=== PATIENT | female | born 1940 | race Caucasian/White ===

== ENCOUNTER → 2016-04-01 | Outpatient (REF) | payer MEDICARE, MEDICAID ==
[~2016-04-01] MED LIST: ASPI1TAB PO; BIOT10005 PO; BUSP5TAB45 PO; HYDR-3363 PO; LITH300C PO; MECL25CH PO; MULTCAP PO; OPTI0.5D5 OU; SLOWTAB2 PO; SYNT100T PO; SYNT88TA2 PO; TYLE325T5 PO; VITA100037 PO; VITATAB11 PO; ZOCO20TA PO; [UNRECOGNIZED DRUG - CODE] PO
[2016-04-01 18:02] LABS: TOTAL PROTEIN 7.1 GM/DL (6.4-8.2)
[2016-04-02 10:39] LABS: ALBUMIN % 60.3 % (55.8-66.1)
[2016-04-02 10:40] LABS: ALBUMIN 4.28 GM/DL (3.29-5.55); GAMMA GLOBULIN % 16.1 % (11.1-18.8)
[2016-04-04 00:08] LABS: FREE KAPPA LIGHT CHAINS SERUM 160.64 mg/L (3.30-19.40); FREE LAMBDA LIGHT CHAINS SERUM 34.76 mg/L (5.71-26.30); KAPPA/LAMBDA RATIO SERUM 4.62 (0.26-1.65)
== END ==
LOC: M LAB REF 16:09
PROVIDERS: ATTEND Internal Medicine Medical Oncology
DX: D89.2 Hypergammaglobulinemia, unspecified (principal)

== ENCOUNTER → 2016-04-08 | Outpatient (CLI) | payer MEDICARE, MEDICAID | LOC: M HL 13:36 | PROVIDERS: ATTEND Nurse Practitioner Adult Health | DX: R63.5 Abnormal weight gain (principal) ==

== ENCOUNTER → 2016-05-20 | Outpatient (CLI) | payer MEDICARE, MEDICAID ==
--- NOTE | 2016-05-20 17:11 | ECGEPIP ---
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
== END ==
LOC: M EKG 14:34
PROVIDERS: ATTEND Nurse Practitioner Psychiatric/Mental Health
DX: I45.81 Long QT syndrome (principal)

== ENCOUNTER → 2016-06-10 | Outpatient (REF) | payer MEDICARE, MEDICAID ==
[2016-06-10 20:07] LABS: IMMUNOGLOBULIN A 39.8 MG/DL (70-400); IMMUNOGLOBULIN G 577 MG/DL (681-1648); IMMUNOGLOBULIN M 921 MG/DL (40-230); TOTAL PROTEIN 6.8 GM/DL (6.4-8.2)
[2016-06-12 10:15] LABS: FREE KAPPA LIGHT CHAINS SERUM 158.02 mg/L (3.30-19.40); FREE LAMBDA LIGHT CHAINS SERUM 19.29 mg/L (5.71-26.30); KAPPA/LAMBDA RATIO SERUM 8.19 (0.26-1.65)
[2016-06-13 10:01] LABS: ALBUMIN 4.07 GM/DL (3.29-5.55); ALBUMIN % 59.8 % (55.8-66.1); GAMMA GLOBULIN % 16.2 % (11.1-18.8)
== END ==
LOC: M LAB REF 17:06
PROVIDERS: ATTEND Internal Medicine Medical Oncology
DX: C85.90 Non-Hodgkin lymphoma, unspecified, unspecified site (principal)

== ENCOUNTER → 2016-07-04 | Outpatient (CLI) | payer MEDICARE, MEDICAID ==
--- NOTE | 2016-07-04 15:11 | REP ---
WHOLE BODY BONE SCAN: HISTORY: Bone pain, monoclonal gammopathy. TECHNIQUE: 20.1 mCi technetium 99m MDP is injected and standard whole body bone scan imaging is acquired. SCINTIGRAPHIC FINDINGS: There is a normal distribution of skeletal tracer with uptake in bilateral kidneys as well as in the urinary bladder. No focus of increased or decreased uptake is seen to suggest skeletal metastatic disease. There is an arthritic pattern in the midfoot joints of the right foot. There is arthritic uptake in each knee and in both shoulders. Mild degenerative uptake is seen at L4-5 in the lumbar spine. IMPRESSION: Arthritic uptake pattern as above most prominently affecting the right midfoot. No evidence to suggest skeletal metastatic disease. Signed by Florencio Ruiz MD 07/04/2016 04:47 P
== END ==
LOC: M RAD 10:12
PROVIDERS: ATTEND Internal Medicine Medical Oncology
DX: D47.2 Monoclonal gammopathy (principal)
CPT/HCPCS: 78306; A9503

== ENCOUNTER → 2016-08-19 | Outpatient (REF) | payer MEDICARE, MEDICAID ==
[2016-08-19 18:12] LABS: IMMUNOGLOBULIN A 40.7 MG/DL (70-400); IMMUNOGLOBULIN G 564 MG/DL (681-1648); IMMUNOGLOBULIN M 1060 MG/DL (40-230)
[2016-08-20 13:42] LABS: ALBUMIN 4.16 GM/DL (3.29-5.55); ALBUMIN % 59.4 % (55.8-66.1); GAMMA GLOBULIN % 16.4 % (11.1-18.8)
[2016-08-22 00:07] LABS: FREE KAPPA LIGHT CHAINS SERUM 164.7 mg/L (3.3-19.4); FREE LAMBDA LIGHT CHAINS SERUM 22.2 mg/L (5.7-26.3); KAPPA/LAMBDA RATIO SERUM 7.42 (0.26-1.65)
== END ==
LOC: M LAB REF 17:07
PROVIDERS: ATTEND Internal Medicine Medical Oncology
DX: Z00.00 Encounter for general adult medical examination without abnormal findings (principal)

== ENCOUNTER → 2016-11-04 | Outpatient (REF) | payer MEDICARE, MEDICAID ==
[2016-11-04 14:10] LABS: FREE T4 1.21 NG/DL (0.76-1.46)
== END ==
LOC: M SMT 13:11
PROVIDERS: ATTEND Internal Medicine Nephrology
DX: E03.9 Hypothyroidism, unspecified (principal)

== ENCOUNTER → 2016-12-19 | Outpatient (REF) | payer MEDICARE, MEDICAID ==
[2016-12-19 20:31] LABS: IMMUNOGLOBULIN G 620 MG/DL (681-1648); IMMUNOGLOBULIN M 1100 MG/DL (40-230); TOTAL PROTEIN 7.4 GM/DL (6.4-8.2)
[2016-12-22 00:06] LABS: FREE KAPPA LIGHT CHAINS SERUM 145.6 mg/L (3.3-19.4); FREE LAMBDA LIGHT CHAINS SERUM 23.1 mg/L (5.7-26.3); KAPPA/LAMBDA RATIO SERUM 6.3 (0.26-1.65)
[2016-12-23 10:49] LABS: ALBUMIN 4.36 GM/DL (3.29-5.55); ALBUMIN % 58.9 % (55.8-66.1); GAMMA GLOBULIN % 16.7 % (11.1-18.8)
== END ==
LOC: M LAB REF 18:01
PROVIDERS: ATTEND Internal Medicine Medical Oncology
DX: D47.2 Monoclonal gammopathy (principal)

== ENCOUNTER → 2017-02-14 | Outpatient (CLI) | payer MEDICARE, MEDICAID ==
--- NOTE | 2017-02-14 16:18 | REPMRS ---
Patient History The patient states she had a clinical breast exam in Patient is postmenopausal. No known family history of cancer. Benign excisional biopsy of the right breast, 1983. Benign excisional biopsy of the left breast, 1982. Took estrogen for 1 month. Digital Woman Screen Mammo: February 14, 2017 - Exam #: [id number] Bilateral CC and MLO view(s) were taken. Technologist: Patricia Allan, Technologist Prior study comparison: January 03, 2016, digital woman screen mammo performed at [facility] [employer] [facility]. December 15, 2014, digital woman screen mammo performed at [facility] [employer] [facility]. December 14, 2013, digital woman screen mammo performed at [facility] [employer] [facility]. FINDINGS: There are scattered fibroglandular densities. There has been no change in the appearance of the mammogram from the prior studies. There is a mild amount of scattered fibroglandular density which is fairly symmetric. There is no interval development of dominant mass, architectural distortion, or clustered microcalcification suggestive of malignancy. ASSESSMENT: BI-RADS/ACR category 1 mammogram. Negative. Recommendation Routine screening mammogram in 1 year (for women over age 40). This mammogram was interpreted with the aid of an FDA-approved computer-aided dectection system. Electronically Signed By: Rivas Ruiz MD 02/14/17 [id number]
== END ==
LOC: M WHC 13:57
PROVIDERS: ATTEND Nurse Practitioner Women's Health
DX: Z01.419 Encounter for gynecological examination (general) (routine) without abnormal findings (principal); Z12.31 Encounter for screening mammogram for malignant neoplasm of breast; Z78.0 Asymptomatic menopausal state; Z92.89 Personal history of other medical treatment
CPT/HCPCS: G0101; G0202

== ENCOUNTER → 2017-02-19 | Outpatient (CLI) | payer MEDICARE, MEDICAID ==
--- NOTE | 2017-02-19 15:42 | REP ---
LEFT ANKLE, FOUR VIEWS: HISTORY: Pain. There is no acute fracture or dislocation. The joint space is normal in appearance. An osteophyte is present on the inferior calcaneus __. Soft tissue swelling is present. IMPRESSION: There is no acute fracture or dislocation. Signed by Raymond Fong MD 02/19/2017 03:45 P
--- NOTE | 2017-02-19 16:13 | REP ---
LEFT FOOT, FOUR VIEWS: HISTORY: Pain. There is no acute fracture or dislocation. There is narrowing of the first metatarsophalangeal joint space with associated osteophyte formation. An osteophyte is present on the inferior calcaneus. IMPRESSION: Degenerative change as described above. Signed by Raymond Fong MD 02/19/2017 04:18 P
== END ==
LOC: M RAD 13:37
PROVIDERS: ATTEND Nurse Practitioner Adult Health
DX: M25.572 Pain in left ankle and joints of left foot (principal); M79.672 Pain in left foot

== ENCOUNTER → 2017-03-24 | Outpatient (CLI) | payer MEDICARE, MEDICAID ==
[2017-03-24 11:29] LABS: BASO % 0.5 % (0.0-1.0); HEMATOCRIT 41.7 % (36.0-47.0); HEMOGLOBIN 13.6 g/dl (12.0-16.0); IMMATURE GRANULOCYTE % 0.4 % (0-0); LYMPH # 2.1 10^3/uL (1.5-4.5); LYMPH % 27.5 % (24.0-44.0); MEAN CORPUSCULAR HEMOGLOBIN 29.8 pg (27.0-33.0); MEAN CORPUSCULAR HGB CONC 32.6 g/dl (32.0-36.5); MEAN CORPUSCULAR VOLUME 91.4 fl (80.0-96.0); MONO # 0.6 10^3/uL (0.0-0.8); MONO % 7.3 % (0.0-5.0); NEUTROPHILS # 4.8 10^3/uL (1.8-7.7); NEUTROPHILS % 64.3 % (36.0-66.0); PLATELET COUNT, AUTOMATED 286 10^3/uL (150-450); RED BLOOD COUNT 4.56 10^6/uL (4.00-5.40); WHITE BLOOD COUNT 7.5 10^3/uL (4.0-10.0)
[2017-03-24 11:52] LABS: ESTIMATED AVERAGE GLUCOSE 163 MG/DL (60-110); HEMOGLOBIN A1c 7.3 %
[2017-03-24 12:05] LABS: TOTAL 25(OH) VITAMIN D 12.1 NG/ML (30.0-100.0)
[2017-03-24 12:34] LABS: ALBUMIN 4.1 GM/DL (3.2-5.2); ALBUMIN/GLOBULIN RATIO 1.32 (1.00-1.93); ALKALINE PHOSPHATASE 50 U/L (45-117); ALT/SGPT 38 U/L (12-78); ANION GAP 7 MEQ/L (8-16); AST/SGOT 12 U/L (7-37); BILIRUBIN,TOTAL 0.3 MG/DL (0.2-1.0); BLOOD UREA NITROGEN 28 MG/DL (7-18); CALCIUM LEVEL 10.3 MG/DL (8.8-10.2); CARBON DIOXIDE LEVEL 26 MEQ/L (21-32); CHLORIDE LEVEL 108 MEQ/L (98-107); CHOLESTEROL LEVEL 182 MG/DL (<200); CHOLESTEROL RISK RATIO 2.983 (<5); CREATININE FOR GFR 1.15 MG/DL (0.55-1.02); FREE T4 1.13 NG/DL (0.76-1.46); GLUCOSE, FASTING 191 MG/DL (83-110); HDL CHOLESTEROL 61 MG/DL (>40); NON-HDL-C 121 MG/DL; POTASSIUM SERUM 4.3 MEQ/L (3.5-5.1); SODIUM LEVEL 141 MEQ/L (136-145); TOTAL PROTEIN 7.2 GM/DL (6.4-8.2); TRIGLYCERIDES LEVEL 160 MG/DL (<150)
== END ==
LOC: M LAB 10:37
DX: R73.9 Hyperglycemia, unspecified (principal); E83.52 Hypercalcemia; Z79.899 Other long term (current) drug therapy; E55.9 Vitamin D deficiency, unspecified; E53.9 Vitamin B deficiency, unspecified; E83.42 Hypomagnesemia; E03.9 Hypothyroidism, unspecified
CPT/HCPCS: 84443

== ENCOUNTER → 2017-06-17 | Outpatient (REF) | payer MEDICARE, MEDICAID | LOC: M LAB REF 13:22 | DX: D47.2 Monoclonal gammopathy (principal); C85.10 Unspecified B-cell lymphoma, unspecified site | CPT/HCPCS: 88300 ==

== ENCOUNTER → 2017-07-02 | Outpatient (CLI) | payer MEDICARE, MEDICAID ==
[2017-07-02 11:31] LABS: BASO % 0.4 % (0.0-1.0); HEMATOCRIT 40.4 % (36.0-47.0); HEMOGLOBIN 13.4 g/dl (12.0-15.5); IMMATURE GRANULOCYTE % 0.5 % (0-3.0); LYMPH # 2.4 10^3/uL (1.5-4.5); LYMPH % 31.6 % (24.0-44.0); MEAN CORPUSCULAR HEMOGLOBIN 29.8 pg (27.0-33.0); MEAN CORPUSCULAR HGB CONC 33.2 g/dl (32.0-36.5); MEAN CORPUSCULAR VOLUME 89.8 fl (80.0-96.0); MONO # 0.6 10^3/uL (0.0-0.8); MONO % 7.9 % (0.0-5.0); NEUTROPHILS # 4.5 10^3/uL (1.8-7.7); NEUTROPHILS % 59.6 % (36.0-66.0); PLATELET COUNT, AUTOMATED 277 10^3/uL (150-450); RED CELL DISTRIBUTION WIDTH 13.3 % (11.5-14.5); WHITE BLOOD COUNT 7.5 10^3/uL (4.0-10.0)
[2017-07-02 12:01] LABS: ALBUMIN 3.9 GM/DL (3.2-5.2); ALBUMIN/GLOBULIN RATIO 1.08 (1.00-1.93); ALKALINE PHOSPHATASE 59 U/L (45-117); ALT/SGPT 44 U/L (12-78); ANION GAP 3 MEQ/L (8-16); AST/SGOT 20 U/L (7-37); BILIRUBIN,TOTAL 0.3 MG/DL (0.2-1.0); BLOOD UREA NITROGEN 23 MG/DL (7-18); CALCIUM LEVEL 10.5 MG/DL (8.8-10.2); CARBON DIOXIDE LEVEL 27 MEQ/L (21-32); CHLORIDE LEVEL 109 MEQ/L (98-107); CHOLESTEROL LEVEL 170 MG/DL (<200); CHOLESTEROL RISK RATIO 2.741 (<5); CREATININE FOR GFR 1.04 MG/DL (0.55-1.30); GLOMERULAR FILTRATION RATE 54.8 (>39); GLUCOSE, FASTING 176 MG/DL (70-100); HDL CHOLESTEROL 62 MG/DL (>40); LDL CHOLESTEROL 78.8 MG/DL (<100); MAGNESIUM LEVEL 2.3 MG/DL (1.8-2.4); NON-HDL-C 108 MG/DL; POTASSIUM SERUM 4.4 MEQ/L (3.5-5.1); SODIUM LEVEL 139 MEQ/L (136-145); TOTAL PROTEIN 7.5 GM/DL (6.4-8.2); TRIGLYCERIDES LEVEL 146 MG/DL (<150)
[2017-07-02 15:14] LABS: ESTIMATED AVERAGE GLUCOSE 177 MG/DL (60-110); HEMOGLOBIN A1c 7.8 %
[2017-07-04 09:01] LABS: VITAMIN B12 LEVEL 659 PG/ML
[2017-07-04 09:02] LABS: FOLATE > 24.0 NG/ML
[2017-07-04 10:04] LABS: TOTAL 25(OH) VITAMIN D 12.8 NG/ML (30.0-100.0)
== END ==
LOC: M LAB 10:58
DX: Z51.81 Encounter for therapeutic drug level monitoring (principal); Z79.899 Other long term (current) drug therapy; E03.9 Hypothyroidism, unspecified; E78.00 Pure hypercholesterolemia, unspecified; F31.9 Bipolar disorder, unspecified; E53.9 Vitamin B deficiency, unspecified
CPT/HCPCS: 82746

== ENCOUNTER → 2017-10-02 | Outpatient (REF) | payer MEDICARE, MEDICAID ==
[2017-10-02 18:28] LABS: IMMUNOGLOBULIN G 553 MG/DL (681-1648); IMMUNOGLOBULIN M 1120 MG/DL (40-230); TOTAL PROTEIN 7.2 GM/DL (6.4-8.2)
[2017-10-05 00:06] LABS: FREE KAPPA LIGHT CHAINS SERUM 133.6 mg/L (3.3-19.4); FREE LAMBDA LIGHT CHAINS SERUM 22.4 mg/L (5.7-26.3); KAPPA/LAMBDA RATIO SERUM 5.96 (0.26-1.65)
[2017-10-07 11:57] LABS: ALBUMIN 4.29 GM/DL (3.29-5.55); ALBUMIN % 59.6 % (55.8-66.1); ALPHA-1-GLOBULIN % 4.5 % (2.9-4.9); ALPHA-1-GLOBULINS 0.32 GM/DL (0.17-0.41); ALPHA-2-GLOBULINS 0.67 GM/DL (0.42-0.99); ALPHA-2-GLOBULINS % 9.3 % (7.1-11.8); BETA-1-GLOBULINS 0.47 GM/DL (0.28-0.60); BETA-1-GLOBULINS % 6.5 % (4.7-7.2); BETA-2-GLOBULINS 0.32 GM/DL (0.19-0.55); BETA-2-GLOBULINS % 4.5 % (3.2-6.5); GAMMA GLOBULIN % 15.6 % (11.1-18.8); GAMMA GLOBULINS 1.12 GM/DL (0.65-1.58)
== END ==
LOC: M LAB REF 17:24
DX: D72.820 Lymphocytosis (symptomatic) (principal); D47.2 Monoclonal gammopathy
CPT/HCPCS: 84165

== ENCOUNTER 2017-12-03 13:04 | Emergency (ER) | payer MEDICARE, MEDICAID ==
[2017-12-03 14:04] LABS: BASO % 0.6 % (0.0-1.0); HEMATOCRIT 36.4 % (36.0-47.0); HEMOGLOBIN 12.4 g/dl (12.0-15.5); IMMATURE GRANULOCYTE % 0.3 % (0-3.0); LYMPH # 1.5 10^3/uL (1.5-4.5); LYMPH % 20.9 % (24.0-44.0); MEAN CORPUSCULAR HEMOGLOBIN 30.4 pg (27.0-33.0); MEAN CORPUSCULAR HGB CONC 34.1 g/dl (32.0-36.5); MEAN CORPUSCULAR VOLUME 89.2 fl (80.0-96.0); MONO # 0.7 10^3/uL (0.0-0.8); MONO % 9.2 % (0.0-5.0); PLATELET COUNT, AUTOMATED 253 10^3/uL (150-450); RED BLOOD COUNT 4.08 10^6/uL (4.00-5.40); RED CELL DISTRIBUTION WIDTH 13.1 % (11.5-14.5); WHITE BLOOD COUNT 7.3 10^3/uL (4.0-10.0)
[2017-12-03 14:15] LABS: PROTHROMBIN TIME 12.2 SECONDS (12.1-14.4)
[2017-12-03 14:55] LABS: ALBUMIN 3.6 GM/DL (3.2-5.2); ALBUMIN/GLOBULIN RATIO 1.06 (1.00-1.93); ALKALINE PHOSPHATASE 61 U/L (45-117); ALT/SGPT 47 U/L (12-78); ANION GAP 7 MEQ/L (8-16); AST/SGOT 18 U/L (7-37); BILIRUBIN,DIRECT < 0.1 MG/DL (0.0-0.2); BILIRUBIN,TOTAL 0.3 MG/DL (0.2-1.0); BLOOD UREA NITROGEN 23 MG/DL (7-18); CALCIUM LEVEL 10.2 MG/DL (8.8-10.2); CARBON DIOXIDE LEVEL 25 MEQ/L (21-32); CHLORIDE LEVEL 107 MEQ/L (98-107); CPK CREATINE PHOSPHOKINASE 106 U/L (26-192); CREATININE FOR GFR 1.07 MG/DL (0.55-1.30); GLOMERULAR FILTRATION RATE 53.1 (>39); GLUCOSE, FASTING 309 MG/DL (70-100); LITHIUM LEVEL 0.66 MEQ/L (0.60-1.20); MB/CK RELATIVE INDEX 4.25 (< OR =4); POTASSIUM SERUM 4.1 MEQ/L (3.5-5.1); SODIUM LEVEL 139 MEQ/L (136-145); TROPONIN I < 0.02 NG/ML (< 0.10)
[2017-12-03] MEDS: FUROSEMIDE 40 MG/4 ML VIAL (J1940) IV (15:13)
== END 2017-12-03 19:18 | disposition left against medical advice (07) ==
LOC: M ED 13:04
DX: E11.9 Type 2 diabetes mellitus without complications (principal); R60.9 Edema, unspecified; I12.9 Hypertensive chronic kidney disease with stage 1 through stage 4 chronic kidney disease, or unspecified chronic kidney disease; N18.9 Chronic kidney disease, unspecified; E07.9 Disorder of thyroid, unspecified; Z88.8 Allergy status to other drugs, medicaments and biological substances; Z88.1 Allergy status to other antibiotic agents; Z91.013 Allergy to seafood; Z88.0 Allergy status to penicillin; Z88.2 Allergy status to sulfonamides; Z79.82 Long term (current) use of aspirin; Z79.899 Other long term (current) drug therapy; Z79.890 Hormone replacement therapy
CPT/HCPCS: J1940

== ENCOUNTER 2017-12-08 06:32 | Inpatient (IN) | payer MEDICARE, MEDICAID ==
[2017-12-08] MEDS: LEVOTHYROXINE 88MCG TABLET (0.088 MG) PO (06:00)
[2017-12-08 08:29] LABS: BASO % 0.2 % (0.0-1.0); EOS % 0.1 % (0.0-3.0); HEMATOCRIT 38.8 % (36.0-47.0); HEMOGLOBIN 12.9 g/dl (12.0-15.5); IMMATURE GRANULOCYTE % 0.8 % (0-3.0); LYMPH # 1.8 10^3/uL (1.5-4.5); LYMPH % 20.9 % (24.0-44.0); MEAN CORPUSCULAR HEMOGLOBIN 29.9 pg (27.0-33.0); MEAN CORPUSCULAR HGB CONC 33.2 g/dl (32.0-36.5); MONO # 0.7 10^3/uL (0.0-0.8); MONO % 8.3 % (0.0-5.0); NEUTROPHILS # 6.1 10^3/uL (1.8-7.7); NEUTROPHILS % 69.7 % (36.0-66.0); PLATELET COUNT, AUTOMATED 105 10^3/uL (150-450); RED BLOOD COUNT 4.31 10^6/uL (4.00-5.40); RED CELL DISTRIBUTION WIDTH 12.9 % (11.5-14.5); WHITE BLOOD COUNT 8.8 10^3/uL (4.0-10.0)
[2017-12-08 08:38] LABS: INR 0.92; PROTHROMBIN TIME 12.4 SECONDS (12.1-14.4)
[2017-12-08 08:39] LABS: PARTIAL THROMBOPLASTIN TIME 20.1 SECONDS (25.4-37.6)
[2017-12-08 08:51] LABS: LACTIC ACID SEPSIS PROTOCOL 1.3 MMOL/L (0.4-2.0)
[2017-12-08 08:54] LABS: POS COUNT POS FLAG
[2017-12-08] MEDS: NS 1,000 ML IV (09:30)
[2017-12-08 09:47] LABS: ANION GAP 8 MEQ/L (8-16); BLOOD UREA NITROGEN 24 MG/DL (7-18); CARBON DIOXIDE LEVEL 21 MEQ/L (21-32); CHLORIDE LEVEL 109 MEQ/L (98-107); CPK CREATINE PHOSPHOKINASE 296 U/L (26-192); CREATININE FOR GFR 1.05 MG/DL (0.55-1.30); FREE T4 1.27 NG/DL (0.76-1.46); GLOMERULAR FILTRATION RATE 54.2 (>39); GLUCOSE, FASTING 234 MG/DL (70-100); LITHIUM LEVEL 0.99 MEQ/L (0.60-1.20); MAGNESIUM LEVEL 2.3 MG/DL (1.8-2.4); MB/CK RELATIVE INDEX 4.36 (< OR =4); SODIUM LEVEL 138 MEQ/L (136-145); TROPONIN I < 0.02 NG/ML (< 0.10)
[2017-12-08] MEDS: ISOVUE-300 61% 50ML VIAL (Q9967) As Ordered (09:53)
[2017-12-08] MEDS: AMIODARONE HCL 360 MG/200 ML PREMIXED BAG (NEXTERONE) As Ordered (09:53)
[2017-12-08] MEDS: BACITRACIN PWD 50,000 UNITS VIAL As Ordered (09:54)
[2017-12-08] MEDS: VANCOMYCIN HCL 1,000 MG, VIAL MATE ADAPTER 1 EACH in D5W 250 ML IV (10:11)
[2017-12-08] MEDS ORDERED: NS 1,000 ML IV (10:15)
[2017-12-08] MEDS ORDERED: PROPOFOL 200 MG/20 ML VIAL As Ordered (11:45)
[2017-12-08] MEDS ORDERED: fentaNYL 100 MCG/2 ML INJECTION (J3010) As Ordered (11:45)
[2017-12-08] MEDS ORDERED: MIDAZOLAM INJ 2 MG/2 ML VIAL (J2250) As Ordered (11:45)
[2017-12-08] MEDS: LIDOCAINE 1% SDV INJ 30 ML VIAL As Ordered (13:12)
[2017-12-08 13:36] LABS: ALBUMIN 3.4 GM/DL (3.2-5.2); ALBUMIN/GLOBULIN RATIO 0.89 (1.00-1.93); ALKALINE PHOSPHATASE 67 U/L (45-117); ALT/SGPT 47 U/L (12-78); AST/SGOT 27 U/L (7-37); BILIRUBIN,DIRECT 0.1 MG/DL (0.0-0.2); BILIRUBIN,TOTAL 0.4 MG/DL (0.2-1.0); CHOLESTEROL LEVEL 137 MG/DL (<200); CHOLESTEROL RISK RATIO 2.245 (<5); HDL CHOLESTEROL 61 MG/DL (>40); LDL CHOLESTEROL 60 MG/DL (<100); NON-HDL-C 76 MG/DL; TOTAL PROTEIN 7.2 GM/DL (6.4-8.2); TRIGLYCERIDES LEVEL 78 MG/DL (<150)
[2017-12-08] MEDS ORDERED: ACETAMINOPHEN 325 MG TAB As Ordered (14:14)
[2017-12-08] MEDS: ACETAMINOPHEN TAB 650MG DOSE (2X325MG) PO ×2 (14:15→18:56)
[2017-12-08] MEDS ORDERED: NORCO, ANEXSIA 5/325MG TABLET (HYDROcodone/ACETAMINOPHEN) PO (14:30)
[2017-12-08] MEDS: LR 1,000 ML IV (14:30)
[2017-12-08] MEDS ORDERED: ONDANSETRON 4MG/2ML VIAL (J2405) IV (14:30)
[2017-12-08] MEDS: MULTIVITAMINS/MINERALS THERAP 1 TAB PO ×2 (15:00→15:50)
[2017-12-08] MEDS ORDERED: GLUCAGON FOR INJ 1 MG VIAL (J1610) SC (15:30)
[2017-12-08] MEDS ORDERED: DEXTROSE 50% 50 ML SYRINGE IV (15:30)
[2017-12-08] MEDS ORDERED: GLUCOSE 4 GM CHEW TABLET PO (15:30)
[2017-12-08] MEDS: ASPIRIN 81 MG ENTERIC TAB PO (15:48)
[2017-12-08] MEDS: SENOKOT S TAB PO ×2 (15:48→22:24)
[2017-12-08] MEDS: guaiFENesin ER 600 MG TAB PO ×2 (15:48→22:24)
[2017-12-08] MEDS: TORSEMIDE 10 MG TABLET PO (15:48)
[2017-12-08 16:44] LABS: BEDSIDE GLUCOSE 190 MG/DL (83-110)
[2017-12-08 17:23] LABS: APPEARANCE, URINE HAZY (CLEAR); BACTERIA, URINE AUTO 1+ (NEGATIVE); BILIRUBIN, URINE AUTO NEGATIVE (NEGATIVE); BLOOD, URINE BLOOD 1+ (NEGATIVE); COLOR, URINE STRAW (YELLOW); GLUCOSE, URINE (UA) AUTO 1+ mg/dL (NEGATIVE); KETONE, URINE AUTO NEGATIVE (NEGATIVE); LEUKOCYTE ESTERASE, URINE AUTO 3+ (NEGATIVE); MUCUS, URINE SMALL (NEGATIVE); NITRITE, URINE AUTO NEGATIVE (NEGATIVE); PROTEIN, URINE AUTO NEGATIVE (NEGATIVE); RBC, URINE AUTO 6 /HPF (0-3); SPECIFIC GRAVITY URINE AUTO 1.004 (1.002-1.035); SQUAMOUS EPITHELIAL CELL UR AU 0 /HPF (0-6); UROBILINOGEN, URINE AUTO 0.2 mg/dL (0.0-2.0); WBC, URINE AUTO 139 /HPF (0-3)
[2017-12-08] MEDS: HumaLOG INSULIN (NovoLOG) PER UNIT SC ×2 (17:30→21:00)
[2017-12-08 21:36] LABS: BEDSIDE GLUCOSE 172 MG/DL (83-110)
[2017-12-08] MEDS: hydrOXYzine 10 MG TAB PO (22:23)
[2017-12-08] MEDS: LITHIUM CARBONATE 150 MG CAP PO (22:23)
[2017-12-08] MEDS: chlorproMAZINE 25 MG TAB (Q0161) PO (22:23)
[2017-12-08] MEDS: SIMVASTATIN 20 MG TAB PO (22:23)
[2017-12-09] MEDS: VANCOMYCIN HCL 1,000 MG, VIAL MATE ADAPTER 1 EACH in D5W 250 ML IV (06:26)
[2017-12-09] MEDS: LEVOTHYROXINE 88MCG TABLET (0.088 MG) PO (06:26)
[2017-12-09 07:13] LABS: ALBUMIN 2.7 GM/DL (3.2-5.2); ANION GAP 3 MEQ/L (8-16); BLOOD UREA NITROGEN 19 MG/DL (7-18); CALCIUM LEVEL 9.4 MG/DL (8.8-10.2); CARBON DIOXIDE LEVEL 26 MEQ/L (21-32); CHLORIDE LEVEL 112 MEQ/L (98-107); CREATININE FOR GFR 0.94 MG/DL (0.55-1.30); GLOMERULAR FILTRATION RATE > 60.0 (>39); GLUCOSE, FASTING 151 MG/DL (70-100); PHOSPHORUS LEVEL 2.1 MG/DL (2.5-4.9); POTASSIUM SERUM 3.9 MEQ/L (3.5-5.1); SODIUM LEVEL 141 MEQ/L (136-145)
[2017-12-09] MEDS: LITHIUM CARBONATE 150 MG CAP PO ×2 (08:27→20:44)
[2017-12-09] MEDS: TORSEMIDE 10 MG TABLET PO (08:27)
[2017-12-09] MEDS: SPIRONOLACTONE 12.5MG PER 1/2 TABLET PO (08:27)
[2017-12-09] MEDS: HumaLOG INSULIN (NovoLOG) PER UNIT SC ×4 (08:28→20:46)
[2017-12-09] MEDS: SENOKOT S TAB PO ×2 (08:28→20:45)
[2017-12-09] MEDS: guaiFENesin ER 600 MG TAB PO ×2 (08:28→20:45)
[2017-12-09] MEDS: ASPIRIN 81 MG ENTERIC TAB PO (08:30)
[2017-12-09 12:00] LABS: BEDSIDE GLUCOSE 209 MG/DL (83-110)
[2017-12-09] MEDS: ACETAMINOPHEN TAB 650MG DOSE (2X325MG) PO ×2 (12:08→20:45)
[2017-12-09] MEDS: traMADol 50 MG TAB PO (15:20)
[2017-12-09 17:16] LABS: BEDSIDE GLUCOSE 264 MG/DL (83-110)
[2017-12-09 20:05] LABS: BEDSIDE GLUCOSE 268 MG/DL (83-110)
[2017-12-09] MEDS: SIMVASTATIN 20 MG TAB PO (20:44)
[2017-12-09] MEDS: chlorproMAZINE 25 MG TAB (Q0161) PO (20:44)
[2017-12-09] MEDS: hydrOXYzine 10 MG TAB PO (20:45)
[2017-12-10] MEDS: LEVOTHYROXINE 88MCG TABLET (0.088 MG) PO (06:03)
[2017-12-10 06:37] LABS: ALBUMIN 2.6 GM/DL (3.2-5.2); ANION GAP 9 MEQ/L (8-16); BLOOD UREA NITROGEN 19 MG/DL (7-18); CARBON DIOXIDE LEVEL 22 MEQ/L (21-32); CHLORIDE LEVEL 110 MEQ/L (98-107); CREATININE FOR GFR 1.01 MG/DL (0.55-1.30); GLOMERULAR FILTRATION RATE 56.7 (>39); GLUCOSE, FASTING 168 MG/DL (70-100); PHOSPHORUS LEVEL 2.7 MG/DL (2.5-4.9); SODIUM LEVEL 141 MEQ/L (136-145)
[2017-12-10] MEDS: HumaLOG INSULIN (NovoLOG) PER UNIT SC ×4 (08:30→21:00)
[2017-12-10] MEDS: ASPIRIN 81 MG ENTERIC TAB PO (08:30)
[2017-12-10] MEDS: guaiFENesin ER 600 MG TAB PO ×2 (08:30→21:07)
[2017-12-10] MEDS: ACETAMINOPHEN TAB 650MG DOSE (2X325MG) PO ×3 (08:30→21:44)
[2017-12-10] MEDS: SENOKOT S TAB PO ×2 (08:31→21:00)
[2017-12-10] MEDS: SPIRONOLACTONE 12.5MG PER 1/2 TABLET PO (08:31)
[2017-12-10] MEDS: LITHIUM CARBONATE 150 MG CAP PO ×2 (08:31→21:42)
[2017-12-10] MEDS ORDERED: ISOVUE-370 76% 100ML VIAL (Q9967) As Ordered (10:38)
[2017-12-10] MEDS: TORSEMIDE 10 MG TABLET PO (11:08)
[2017-12-10] MEDS: MECLIZINE 25 MG TABLET PO ×3 (11:08→21:07)
[2017-12-10] MEDS ORDERED: SLF 3 ML SYR IV (11:30)
[2017-12-10 11:50] LABS: BEDSIDE GLUCOSE 241 MG/DL (83-110)
[2017-12-10] MEDS: SLF 3 ML SYR IV ×2 (12:28→21:08)
[2017-12-10 16:27] LABS: BEDSIDE GLUCOSE 212 MG/DL (83-110)
[2017-12-10 21:01] LABS: BEDSIDE GLUCOSE 197 MG/DL (83-110)
[2017-12-10] MEDS: FUROSEMIDE 100 MG/10 ML VIAL (J1940) IV (21:07)
[2017-12-10] MEDS: SIMVASTATIN 20 MG TAB PO (21:07)
[2017-12-10] MEDS: hydrOXYzine 10 MG TAB PO (21:42)
[2017-12-10] MEDS: chlorproMAZINE 25 MG TAB (Q0161) PO (21:42)
[2017-12-11] MEDS: LEVOTHYROXINE 88MCG TABLET (0.088 MG) PO (05:32)
[2017-12-11] MEDS: SLF 3 ML SYR IV ×2 (05:32→14:00)
[2017-12-11 07:44] LABS: BEDSIDE GLUCOSE 231 MG/DL (83-110)
[2017-12-11] MEDS: HumaLOG INSULIN (NovoLOG) PER UNIT SC ×4 (08:45→20:34)
[2017-12-11] MEDS: SPIRONOLACTONE 12.5MG PER 1/2 TABLET PO (08:47)
[2017-12-11] MEDS: MECLIZINE 25 MG TABLET PO ×3 (08:48→21:01)
[2017-12-11] MEDS: ASPIRIN 81 MG ENTERIC TAB PO (08:49)
[2017-12-11] MEDS: SENOKOT S TAB PO ×2 (08:50→21:00)
[2017-12-11] MEDS: guaiFENesin ER 600 MG TAB PO ×2 (08:50→21:01)
[2017-12-11] MEDS: LITHIUM CARBONATE 150 MG CAP PO ×2 (08:50→21:01)
[2017-12-11] MEDS: FUROSEMIDE 100 MG/10 ML VIAL (J1940) IV (09:15)
[2017-12-11 11:46] LABS: BEDSIDE GLUCOSE 320 MG/DL (83-110)
[2017-12-11 16:43] LABS: BEDSIDE GLUCOSE 181 MG/DL (83-110)
[2017-12-11] MEDS: metFORMIN (GLUCOPHAGE) 500 MG TAB PO (17:19)
[2017-12-11 20:28] LABS: BEDSIDE GLUCOSE 242 MG/DL (83-110)
[2017-12-11] MEDS: chlorproMAZINE 25 MG TAB (Q0161) PO (21:00)
[2017-12-11] MEDS: SIMVASTATIN 20 MG TAB PO (21:01)
[2017-12-11] MEDS: hydrOXYzine 10 MG TAB PO (21:01)
[2017-12-11] MEDS: ACETAMINOPHEN TAB 650MG DOSE (2X325MG) PO (21:02)
[2017-12-12] MEDS: ACETAMINOPHEN TAB 650MG DOSE (2X325MG) PO (04:26)
[2017-12-12] MEDS: LEVOTHYROXINE 88MCG TABLET (0.088 MG) PO (05:32)
[2017-12-12 05:36] LABS: BEDSIDE GLUCOSE 200 MG/DL (83-110)
[2017-12-12] MEDS: MECLIZINE 25 MG TABLET PO (08:04)
[2017-12-12] MEDS: SENOKOT S TAB PO ×2 (08:04→08:05)
[2017-12-12] MEDS: guaiFENesin ER 600 MG TAB PO (08:04)
[2017-12-12] MEDS: TORSEMIDE 20 MG TAB PO (08:05)
[2017-12-12] MEDS: LITHIUM CARBONATE 150 MG CAP PO (08:05)
[2017-12-12] MEDS: ASPIRIN 81 MG ENTERIC TAB PO (08:05)
[2017-12-12] MEDS: HumaLOG INSULIN (NovoLOG) PER UNIT SC ×2 (08:06→12:03)
[2017-12-12] MEDS: SPIRONOLACTONE 12.5MG PER 1/2 TABLET PO (08:06)
[2017-12-12 11:34] LABS: BEDSIDE GLUCOSE 276 MG/DL (83-110)
[2017-12-12] MEDS ORDERED: LEVEMIR (INSULIN DETEMIR) 1 UNITS/0.01ML SC (21:00)
== END 2017-12-12 13:57 | DRG 242 ==
LOC: M ED 06:32 → M ED INP 09:46 → M PCU 14:33
PROC: 0JH606Z Insertion of Pacemaker, Dual Chamber into Chest Subcutaneous Tissue and Fascia, Open Approach (ICD-10-PCS; principal; 2017-12-08 10:15)
PROC: 02H73JZ Insertion of Pacemaker Lead into Left Atrium, Percutaneous Approach (ICD-10-PCS; 2017-12-08 10:15)
PROC: 02HL3JZ Insertion of Pacemaker Lead into Left Ventricle, Percutaneous Approach (ICD-10-PCS; 2017-12-08 10:15)
DX: I44.0 Atrioventricular block, first degree (principal); I50.33 Acute on chronic diastolic (congestive) heart failure; R55 Syncope and collapse; E66.9 Obesity, unspecified; E03.9 Hypothyroidism, unspecified; I11.0 Hypertensive heart disease with heart failure; E11.9 Type 2 diabetes mellitus without complications; Z68.31 Body mass index [BMI] 31.0-31.9, adult; Z79.4 Long term (current) use of insulin; F31.9 Bipolar disorder, unspecified; Z79.899 Other long term (current) drug therapy; Z88.6 Allergy status to analgesic agent; I87.2 Venous insufficiency (chronic) (peripheral); Z88.0 Allergy status to penicillin; Z88.2 Allergy status to sulfonamides; Z91.013 Allergy to seafood

== ENCOUNTER 2017-12-12 14:00 | Inpatient (IN) | payer MEDICARE, MEDICAID ==
[2017-12-12] MEDS ORDERED: DEXTROSE 50% 50 ML SYRINGE IV (17:00)
[2017-12-12] MEDS ORDERED: traMADol 50 MG TAB PO (17:00)
[2017-12-12] MEDS ORDERED: GLUCAGON FOR INJ 1 MG VIAL (J1610) SC (17:00)
[2017-12-12] MEDS ORDERED: GLUCOSE 4 GM CHEW TABLET PO (17:00)
[2017-12-12] MEDS: metFORMIN (GLUCOPHAGE) 500 MG TAB PO (18:00)
[2017-12-12 18:07] LABS: BEDSIDE GLUCOSE 217 MG/DL (83-110)
[2017-12-12] MEDS: HumaLOG INSULIN (NovoLOG) PER UNIT SC (18:30)
[2017-12-12] MEDS ORDERED: **NOTE PATIENT COMMENT** MISC XX (21:00)
[2017-12-12 21:21] LABS: BEDSIDE GLUCOSE 229 MG/DL (83-110)
[2017-12-12] MEDS: chlorproMAZINE 25 MG TAB (Q0161) PO (21:22)
[2017-12-12] MEDS: LEVEMIR (INSULIN DETEMIR) 1 UNITS/0.01ML SC (21:23)
[2017-12-12] MEDS: HEPARIN SOD (PORCINE) 5000 UNITS/ML VIAL SQ (21:23)
[2017-12-12] MEDS: SIMVASTATIN 20 MG TAB PO (21:24)
[2017-12-12] MEDS: LIDOCAINE 5% (LIDODERM) PATCH TD (21:24)
[2017-12-12] MEDS: MECLIZINE 25 MG TABLET PO (21:24)
[2017-12-12] MEDS: LITHIUM CARBONATE 300 MG CAP PO (21:24)
[2017-12-12] MEDS: guaiFENesin ER 600 MG TAB PO (21:24)
[2017-12-12] MEDS: hydrOXYzine 10 MG TAB PO (21:24)
[2017-12-12] MEDS: busPIRone 10 MG TAB PO (21:24)
[2017-12-12 22:16] LABS: APPEARANCE, URINE CLEAR (CLEAR); BACTERIA, URINE AUTO 1+ (NEGATIVE); BILIRUBIN, URINE AUTO NEGATIVE (NEGATIVE); BLOOD, URINE BLOOD NEGATIVE (NEGATIVE); COLOR, URINE YELLOW (YELLOW); GLUCOSE, URINE (UA) AUTO NEGATIVE (NEGATIVE); KETONE, URINE AUTO NEGATIVE (NEGATIVE); LEUKOCYTE ESTERASE, URINE AUTO 1+ (NEGATIVE); NITRITE, URINE AUTO NEGATIVE (NEGATIVE); PROTEIN, URINE AUTO NEGATIVE (NEGATIVE); RBC, URINE AUTO 0 /HPF (0-3); SPECIFIC GRAVITY URINE AUTO 1.011 (1.002-1.035); SQUAMOUS EPITHELIAL CELL UR AU 1 /HPF (0-6); UROBILINOGEN, URINE AUTO 0.2 mg/dL (0.0-2.0); WBC, URINE AUTO 5 /HPF (0-3)
[2017-12-13] MEDS: ACETAMINOPHEN TAB 650MG DOSE (2X325MG) PO ×3 (00:29→21:18)
[2017-12-13] MEDS: LEVOTHYROXINE 88MCG TABLET (0.088 MG) PO (06:25)
[2017-12-13 06:32] LABS: BEDSIDE GLUCOSE 177 MG/DL (83-110)
[2017-12-13 06:32] LABS: BASO # 0.1 10^3/uL (0.0-0.2); BASO % 0.6 % (0.0-1.0); EOS % 0.1 % (0.0-3.0); HEMATOCRIT 35.9 % (36.0-47.0); IMMATURE GRANULOCYTE % 1.5 % (0-3.0); LYMPH # 3.1 10^3/uL (1.5-4.5); LYMPH % 26.9 % (24.0-44.0); MEAN CORPUSCULAR HEMOGLOBIN 30.2 pg (27.0-33.0); MEAN CORPUSCULAR HGB CONC 33.4 g/dl (32.0-36.5); MEAN CORPUSCULAR VOLUME 90.2 fl (80.0-96.0); MONO # 1.1 10^3/uL (0.0-0.8); MONO % 9.1 % (0.0-5.0); NEUTROPHILS # 7.2 10^3/uL (1.8-7.7); NEUTROPHILS % 61.8 % (36.0-66.0); PLATELET COUNT, AUTOMATED 312 10^3/uL (150-450); RED BLOOD COUNT 3.98 10^6/uL (4.00-5.40); WHITE BLOOD COUNT 11.7 10^3/uL (4.0-10.0)
[2017-12-13 06:53] LABS: ANION GAP 9 MEQ/L (8-16); BLOOD UREA NITROGEN 23 MG/DL (7-18); CALCIUM LEVEL 11.5 MG/DL (8.8-10.2); CARBON DIOXIDE LEVEL 25 MEQ/L (21-32); CHLORIDE LEVEL 106 MEQ/L (98-107); CREATININE FOR GFR 1.09 MG/DL (0.55-1.30); GLUCOSE, FASTING 174 MG/DL (70-100); PHOSPHORUS LEVEL 2.9 MG/DL (2.5-4.9); POTASSIUM SERUM 3.9 MEQ/L (3.5-5.1); SODIUM LEVEL 140 MEQ/L (136-145)
[2017-12-13] MEDS: HumaLOG INSULIN (NovoLOG) PER UNIT SC ×6 (08:46→17:22)
[2017-12-13] MEDS: HEPARIN SOD (PORCINE) 5000 UNITS/ML VIAL SQ ×2 (08:46→21:16)
[2017-12-13] MEDS: TORSEMIDE 20 MG TAB PO (08:47)
[2017-12-13] MEDS: LITHIUM CARBONATE 150 MG CAP PO (08:47)
[2017-12-13] MEDS: SPIRONOLACTONE 12.5MG PER 1/2 TABLET PO (08:47)
[2017-12-13] MEDS: guaiFENesin ER 600 MG TAB PO ×2 (08:47→21:17)
[2017-12-13] MEDS: ASPIRIN 81 MG ENTERIC TAB PO (08:47)
[2017-12-13] MEDS: busPIRone 10 MG TAB PO ×3 (08:48→21:17)
[2017-12-13] MEDS: VITAMIN B COMPLEX/VIT C CAP PO (08:48)
[2017-12-13] MEDS: MECLIZINE 25 MG TABLET PO ×3 (08:48→21:17)
[2017-12-13] MEDS: INFLUENZA VIRUS VACCINE HIGH DOSE 0.5 ML SYRINGE (90662) IM (08:49)
[2017-12-13] MEDS: MIRALAX *UNIT DOSE* 17GM PACKET PO (08:49)
[2017-12-13] MEDS: **NOTE PATIENT COMMENT** MISC XX (08:49)
[2017-12-13] MEDS ORDERED: OMEGA-3 1000MG CAPSULE PO (09:00)
[2017-12-13 11:51] LABS: BEDSIDE GLUCOSE 318 MG/DL (83-110)
[2017-12-13 16:46] LABS: BEDSIDE GLUCOSE 123 MG/DL (83-110)
[2017-12-13 19:56] LABS: BEDSIDE GLUCOSE 140 MG/DL (83-110)
[2017-12-13] MEDS: LEVEMIR (INSULIN DETEMIR) 1 UNITS/0.01ML SC (21:16)
[2017-12-13] MEDS: LITHIUM CARBONATE 300 MG CAP PO (21:17)
[2017-12-13] MEDS: SIMVASTATIN 20 MG TAB PO (21:17)
[2017-12-13] MEDS: chlorproMAZINE 25 MG TAB (Q0161) PO (21:17)
[2017-12-13] MEDS: hydrOXYzine 10 MG TAB PO (21:17)
[2017-12-13] MEDS: LIDOCAINE 5% (LIDODERM) PATCH TD (21:18)
[2017-12-14] MEDS: LEVOTHYROXINE 88MCG TABLET (0.088 MG) PO (05:47)
[2017-12-14] MEDS: ACETAMINOPHEN TAB 650MG DOSE (2X325MG) PO ×2 (05:48→18:36)
[2017-12-14 05:57] LABS: BEDSIDE GLUCOSE 201 MG/DL (83-110)
[2017-12-14] MEDS: MIRALAX *UNIT DOSE* 17GM PACKET PO (08:57)
[2017-12-14] MEDS: guaiFENesin ER 600 MG TAB PO ×2 (09:00→20:19)
[2017-12-14] MEDS: busPIRone 10 MG TAB PO ×3 (09:00→20:19)
[2017-12-14] MEDS: ASPIRIN 81 MG ENTERIC TAB PO (09:00)
[2017-12-14] MEDS: MECLIZINE 25 MG TABLET PO ×3 (09:00→20:19)
[2017-12-14] MEDS: SPIRONOLACTONE 12.5MG PER 1/2 TABLET PO (09:00)
[2017-12-14] MEDS: TORSEMIDE 20 MG TAB PO (09:00)
[2017-12-14] MEDS: VITAMIN B COMPLEX/VIT C CAP PO (09:00)
[2017-12-14] MEDS: HEPARIN SOD (PORCINE) 5000 UNITS/ML VIAL SQ ×2 (09:00→20:20)
[2017-12-14] MEDS: HumaLOG INSULIN (NovoLOG) PER UNIT SC ×6 (09:01→17:23)
[2017-12-14] MEDS: LITHIUM CARBONATE 150 MG CAP PO (09:01)
[2017-12-14] MEDS: **NOTE PATIENT COMMENT** MISC XX (09:02)
[2017-12-14 11:37] LABS: BEDSIDE GLUCOSE 245 MG/DL (83-110)
[2017-12-14 16:50] LABS: BEDSIDE GLUCOSE 117 MG/DL (83-110)
[2017-12-14 19:48] LABS: BEDSIDE GLUCOSE 308 MG/DL (83-110)
[2017-12-14] MEDS: LIDOCAINE 5% (LIDODERM) PATCH TD (20:18)
[2017-12-14] MEDS: LITHIUM CARBONATE 300 MG CAP PO (20:19)
[2017-12-14] MEDS: SIMVASTATIN 20 MG TAB PO (20:19)
[2017-12-14] MEDS: chlorproMAZINE 25 MG TAB (Q0161) PO (20:19)
[2017-12-14] MEDS: hydrOXYzine 10 MG TAB PO (20:20)
[2017-12-14] MEDS: LEVEMIR (INSULIN DETEMIR) 1 UNITS/0.01ML SC (20:20)
[2017-12-15] MEDS: LEVOTHYROXINE 88MCG TABLET (0.088 MG) PO (06:28)
[2017-12-15 06:36] LABS: BEDSIDE GLUCOSE 215 MG/DL (83-110)
[2017-12-15] MEDS: HumaLOG INSULIN (NovoLOG) PER UNIT SC ×6 (08:41→17:05)
[2017-12-15] MEDS: ASPIRIN 81 MG ENTERIC TAB PO (08:42)
[2017-12-15] MEDS: MECLIZINE 25 MG TABLET PO ×3 (08:42→20:41)
[2017-12-15] MEDS: guaiFENesin ER 600 MG TAB PO ×2 (08:42→20:42)
[2017-12-15] MEDS: VITAMIN B COMPLEX/VIT C CAP PO (08:42)
[2017-12-15] MEDS: MIRALAX *UNIT DOSE* 17GM PACKET PO (08:42)
[2017-12-15] MEDS: TORSEMIDE 20 MG TAB PO (08:42)
[2017-12-15] MEDS: busPIRone 10 MG TAB PO ×3 (08:42→20:42)
[2017-12-15] MEDS: LITHIUM CARBONATE 150 MG CAP PO (08:42)
[2017-12-15] MEDS: SPIRONOLACTONE 12.5MG PER 1/2 TABLET PO (08:42)
[2017-12-15] MEDS: HEPARIN SOD (PORCINE) 5000 UNITS/ML VIAL SQ ×2 (08:43→20:41)
[2017-12-15] MEDS: ACETAMINOPHEN TAB 650MG DOSE (2X325MG) PO ×2 (08:53→15:30)
[2017-12-15] MEDS: **NOTE PATIENT COMMENT** MISC XX (08:59)
[2017-12-15 11:32] LABS: BEDSIDE GLUCOSE 265 MG/DL (83-110)
[2017-12-15 16:48] LABS: BEDSIDE GLUCOSE 168 MG/DL (83-110)
[2017-12-15 20:00] LABS: BEDSIDE GLUCOSE 183 MG/DL (83-110)
[2017-12-15] MEDS: hydrOXYzine 10 MG TAB PO (20:41)
[2017-12-15] MEDS: SIMVASTATIN 20 MG TAB PO (20:42)
[2017-12-15] MEDS: LITHIUM CARBONATE 300 MG CAP PO (20:42)
[2017-12-15] MEDS: chlorproMAZINE 25 MG TAB (Q0161) PO (20:42)
[2017-12-15] MEDS: LEVEMIR (INSULIN DETEMIR) 1 UNITS/0.01ML SC (20:43)
[2017-12-15] MEDS: LIDOCAINE 5% (LIDODERM) PATCH TD (20:43)
[2017-12-15] MEDS ORDERED: LEVEMIR (INSULIN DETEMIR) 1 UNITS/0.01ML SC (21:00)
[2017-12-16] MEDS: LEVOTHYROXINE 88MCG TABLET (0.088 MG) PO (05:30)
[2017-12-16 07:14] LABS: BEDSIDE GLUCOSE 215 MG/DL (83-110)
[2017-12-16] MEDS: HumaLOG INSULIN (NovoLOG) PER UNIT SC ×6 (07:30→18:20)
[2017-12-16] MEDS: SPIRONOLACTONE 12.5MG PER 1/2 TABLET PO (08:53)
[2017-12-16] MEDS: TORSEMIDE 20 MG TAB PO (08:53)
[2017-12-16] MEDS: HEPARIN SOD (PORCINE) 5000 UNITS/ML VIAL SQ ×2 (08:53→20:16)
[2017-12-16] MEDS: guaiFENesin ER 600 MG TAB PO ×2 (08:53→20:16)
[2017-12-16] MEDS: busPIRone 10 MG TAB PO ×3 (08:53→20:17)
[2017-12-16] MEDS: MECLIZINE 25 MG TABLET PO ×3 (08:53→20:16)
[2017-12-16] MEDS: ASPIRIN 81 MG ENTERIC TAB PO (08:53)
[2017-12-16] MEDS: VITAMIN B COMPLEX/VIT C CAP PO (08:53)
[2017-12-16] MEDS: MIRALAX *UNIT DOSE* 17GM PACKET PO (08:54)
[2017-12-16] MEDS: LITHIUM CARBONATE 150 MG CAP PO ×2 (08:54→20:16)
[2017-12-16] MEDS: **NOTE PATIENT COMMENT** MISC XX (08:57)
[2017-12-16] MEDS: ACETAMINOPHEN TAB 650MG DOSE (2X325MG) PO (10:46)
[2017-12-16 11:27] LABS: BEDSIDE GLUCOSE 313 MG/DL (83-110)
[2017-12-16 12:08] LABS: BEDSIDE GLUCOSE 278 MG/DL (83-110)
[2017-12-16 16:58] LABS: BEDSIDE GLUCOSE 148 MG/DL (83-110)
[2017-12-16 20:12] LABS: BEDSIDE GLUCOSE 208 MG/DL (83-110)
[2017-12-16] MEDS: NYSTATIN 100,000 UNITS/GM TOPICAL PWD 15 GM TOP (20:16)
[2017-12-16] MEDS: chlorproMAZINE 25 MG TAB (Q0161) PO (20:16)
[2017-12-16] MEDS: LIDOCAINE 5% (LIDODERM) PATCH TD (20:17)
[2017-12-16] MEDS: SIMVASTATIN 20 MG TAB PO (20:17)
[2017-12-16] MEDS: hydrOXYzine 10 MG TAB PO (20:17)
[2017-12-16] MEDS: LEVEMIR (INSULIN DETEMIR) 1 UNITS/0.01ML SC (20:18)
[2017-12-16] MEDS: LITHIUM CARBONATE 300 MG CAP PO (20:23)
[2017-12-17] MEDS: LEVOTHYROXINE 88MCG TABLET (0.088 MG) PO (05:28)
[2017-12-17 06:30] LABS: BEDSIDE GLUCOSE 180 MG/DL (83-110)
[2017-12-17] MEDS: **NOTE PATIENT COMMENT** MISC XX (09:00)
[2017-12-17] MEDS: NYSTATIN 100,000 UNITS/GM TOPICAL PWD 15 GM TOP ×2 (09:00→21:00)
[2017-12-17] MEDS: MIRALAX *UNIT DOSE* 17GM PACKET PO (09:11)
[2017-12-17] MEDS: guaiFENesin ER 600 MG TAB PO ×2 (09:12→21:42)
[2017-12-17] MEDS: SPIRONOLACTONE 12.5MG PER 1/2 TABLET PO (09:12)
[2017-12-17] MEDS: TORSEMIDE 20 MG TAB PO (09:12)
[2017-12-17] MEDS: HEPARIN SOD (PORCINE) 5000 UNITS/ML VIAL SQ ×2 (09:12→21:41)
[2017-12-17] MEDS: VITAMIN B COMPLEX/VIT C CAP PO (09:13)
[2017-12-17] MEDS: ASPIRIN 81 MG ENTERIC TAB PO (09:13)
[2017-12-17] MEDS: LITHIUM CARBONATE 150 MG CAP PO (09:13)
[2017-12-17] MEDS: MECLIZINE 25 MG TABLET PO ×3 (09:13→21:42)
[2017-12-17] MEDS: busPIRone 10 MG TAB PO ×3 (09:14→21:42)
[2017-12-17] MEDS: HumaLOG INSULIN (NovoLOG) PER UNIT SC ×6 (09:15→17:09)
[2017-12-17 12:04] LABS: BEDSIDE GLUCOSE 323 MG/DL (83-110)
[2017-12-17] MEDS: ACETAMINOPHEN TAB 650MG DOSE (2X325MG) PO (12:11)
[2017-12-17 16:48] LABS: BEDSIDE GLUCOSE 164 MG/DL (83-110)
[2017-12-17] MEDS: amLODIPine 5 MG TAB PO (17:06)
[2017-12-17 20:06] LABS: BEDSIDE GLUCOSE 147 MG/DL (83-110)
[2017-12-17] MEDS: LEVEMIR (INSULIN DETEMIR) 1 UNITS/0.01ML SC (21:00)
[2017-12-17] MEDS: SIMVASTATIN 20 MG TAB PO (21:42)
[2017-12-17] MEDS: LIDOCAINE 5% (LIDODERM) PATCH TD (21:42)
[2017-12-17] MEDS: LITHIUM CARBONATE 300 MG CAP PO (21:42)
[2017-12-17] MEDS: hydrOXYzine 10 MG TAB PO (22:09)
[2017-12-17] MEDS: chlorproMAZINE 25 MG TAB (Q0161) PO (22:09)
[2017-12-18] MEDS: ACETAMINOPHEN TAB 650MG DOSE (2X325MG) PO ×2 (05:57→12:42)
[2017-12-18] MEDS: LEVOTHYROXINE 88MCG TABLET (0.088 MG) PO (05:57)
[2017-12-18 06:39] LABS: BEDSIDE GLUCOSE 205 MG/DL (83-110)
[2017-12-18] MEDS: VITAMIN B COMPLEX/VIT C CAP PO (08:32)
[2017-12-18] MEDS: busPIRone 10 MG TAB PO ×3 (08:32→21:36)
[2017-12-18] MEDS: ASPIRIN 81 MG ENTERIC TAB PO (08:32)
[2017-12-18] MEDS: SPIRONOLACTONE 25 MG TAB PO (08:33)
[2017-12-18] MEDS: MECLIZINE 25 MG TABLET PO ×3 (08:33→21:37)
[2017-12-18] MEDS: TORSEMIDE 20 MG TAB PO (08:33)
[2017-12-18] MEDS: guaiFENesin ER 600 MG TAB PO ×2 (08:33→21:36)
[2017-12-18] MEDS: HEPARIN SOD (PORCINE) 5000 UNITS/ML VIAL SQ ×2 (08:34→21:35)
[2017-12-18] MEDS: MIRALAX *UNIT DOSE* 17GM PACKET PO (08:34)
[2017-12-18] MEDS: HumaLOG INSULIN (NovoLOG) PER UNIT SC ×6 (08:35→17:15)
[2017-12-18] MEDS: **NOTE PATIENT COMMENT** MISC XX (08:36)
[2017-12-18] MEDS: NYSTATIN 100,000 UNITS/GM TOPICAL PWD 15 GM TOP ×2 (08:37→21:00)
[2017-12-18 09:14] LABS: ANION GAP 8 MEQ/L (8-16); BLOOD UREA NITROGEN 23 MG/DL (7-18); CALCIUM LEVEL 10.5 MG/DL (8.8-10.2); CARBON DIOXIDE LEVEL 25 MEQ/L (21-32); CHLORIDE LEVEL 109 MEQ/L (98-107); CREATININE FOR GFR 1.27 MG/DL (0.55-1.30); GLOMERULAR FILTRATION RATE 43.6 (>39); GLUCOSE, FASTING 201 MG/DL (70-100); LITHIUM LEVEL 0.64 MEQ/L (0.60-1.20); POTASSIUM SERUM 4.4 MEQ/L (3.5-5.1); SODIUM LEVEL 142 MEQ/L (136-145)
[2017-12-18 12:14] LABS: BEDSIDE GLUCOSE 231 MG/DL (83-110)
[2017-12-18 17:06] LABS: BEDSIDE GLUCOSE 243 MG/DL (83-110)
[2017-12-18 20:29] LABS: BEDSIDE GLUCOSE 255 MG/DL (83-110)
[2017-12-18] MEDS: LEVEMIR (INSULIN DETEMIR) 1 UNITS/0.01ML SC (21:00)
[2017-12-18] MEDS: LITHIUM CARBONATE 300 MG CAP PO (21:36)
[2017-12-18] MEDS: hydrOXYzine 10 MG TAB PO (21:36)
[2017-12-18] MEDS: chlorproMAZINE 25 MG TAB (Q0161) PO (21:36)
[2017-12-18] MEDS: SIMVASTATIN 20 MG TAB PO (21:37)
[2017-12-18] MEDS: LIDOCAINE 5% (LIDODERM) PATCH TD (21:37)
[2017-12-19] MEDS: LEVOTHYROXINE 88MCG TABLET (0.088 MG) PO (05:32)
[2017-12-19] MEDS: HumaLOG INSULIN (NovoLOG) PER UNIT SC ×6 (09:00→17:08)
[2017-12-19] MEDS: **NOTE PATIENT COMMENT** MISC XX (09:00)
[2017-12-19] MEDS: TORSEMIDE 20 MG TAB PO (09:01)
[2017-12-19] MEDS: busPIRone 10 MG TAB PO ×3 (09:01→22:22)
[2017-12-19] MEDS: ASPIRIN 81 MG ENTERIC TAB PO (09:01)
[2017-12-19] MEDS: HEPARIN SOD (PORCINE) 5000 UNITS/ML VIAL SQ ×2 (09:01→22:21)
[2017-12-19] MEDS: MECLIZINE 25 MG TABLET PO ×3 (09:01→22:22)
[2017-12-19] MEDS: LITHIUM CARBONATE 150 MG CAP PO (09:02)
[2017-12-19] MEDS: MIRALAX *UNIT DOSE* 17GM PACKET PO (09:02)
[2017-12-19] MEDS: VITAMIN B COMPLEX/VIT C CAP PO (09:02)
[2017-12-19] MEDS: guaiFENesin ER 600 MG TAB PO ×2 (09:02→22:21)
[2017-12-19] MEDS: SPIRONOLACTONE 25 MG TAB PO (09:02)
[2017-12-19] MEDS: NYSTATIN 100,000 UNITS/GM TOPICAL PWD 15 GM TOP ×2 (09:03→22:25)
[2017-12-19] MEDS: ACETAMINOPHEN TAB 650MG DOSE (2X325MG) PO ×2 (09:04→22:23)
[2017-12-19] MEDS: hydrOXYzine 10 MG TAB PO (22:21)
[2017-12-19] MEDS: chlorproMAZINE 25 MG TAB (Q0161) PO (22:21)
[2017-12-19] MEDS: SIMVASTATIN 20 MG TAB PO (22:22)
[2017-12-19] MEDS: LITHIUM CARBONATE 300 MG CAP PO (22:22)
[2017-12-19] MEDS: LIDOCAINE 5% (LIDODERM) PATCH TD (22:24)
[2017-12-19] MEDS: LEVEMIR (INSULIN DETEMIR) 1 UNITS/0.01ML SC (22:24)
[2017-12-20] MEDS: LEVOTHYROXINE 88MCG TABLET (0.088 MG) PO (05:41)
[2017-12-20] MEDS: MIRALAX *UNIT DOSE* 17GM PACKET PO (08:14)
[2017-12-20] MEDS: VITAMIN B COMPLEX/VIT C CAP PO (08:14)
[2017-12-20] MEDS: TORSEMIDE 20 MG TAB PO (08:14)
[2017-12-20] MEDS: LITHIUM CARBONATE 150 MG CAP PO (08:15)
[2017-12-20] MEDS: SPIRONOLACTONE 25 MG TAB PO (08:15)
[2017-12-20] MEDS: busPIRone 10 MG TAB PO ×3 (08:15→21:39)
[2017-12-20] MEDS: MECLIZINE 25 MG TABLET PO ×3 (08:15→21:39)
[2017-12-20] MEDS: ASPIRIN 81 MG ENTERIC TAB PO (08:15)
[2017-12-20] MEDS: guaiFENesin ER 600 MG TAB PO ×2 (08:15→21:39)
[2017-12-20] MEDS: HEPARIN SOD (PORCINE) 5000 UNITS/ML VIAL SQ ×2 (08:16→21:40)
[2017-12-20] MEDS: HumaLOG INSULIN (NovoLOG) PER UNIT SC ×6 (08:16→17:21)
[2017-12-20] MEDS: NYSTATIN 100,000 UNITS/GM TOPICAL PWD 15 GM TOP ×2 (08:21→21:42)
[2017-12-20] MEDS: **NOTE PATIENT COMMENT** MISC XX (08:24)
[2017-12-20] MEDS: ACETAMINOPHEN TAB 650MG DOSE (2X325MG) PO ×2 (10:14→21:57)
[2017-12-20] MEDS: NYSTATIN 500,000 U/5 ML SUSP UDC SS ×3 (13:00→21:40)
[2017-12-20] MEDS: SIMVASTATIN 20 MG TAB PO (21:39)
[2017-12-20] MEDS: LITHIUM CARBONATE 300 MG CAP PO (21:39)
[2017-12-20] MEDS: hydrOXYzine 10 MG TAB PO (21:39)
[2017-12-20] MEDS: chlorproMAZINE 25 MG TAB (Q0161) PO (21:39)
[2017-12-20] MEDS: LEVEMIR (INSULIN DETEMIR) 1 UNITS/0.01ML SC (21:40)
[2017-12-20] MEDS: LIDOCAINE 5% (LIDODERM) PATCH TD (21:42)
[2017-12-21] MEDS: LEVOTHYROXINE 88MCG TABLET (0.088 MG) PO (05:45)
[2017-12-21] MEDS: ACETAMINOPHEN TAB 650MG DOSE (2X325MG) PO ×2 (06:01→20:30)
[2017-12-21] MEDS: NYSTATIN 500,000 U/5 ML SUSP UDC SS ×4 (08:29→20:31)
[2017-12-21] MEDS: HEPARIN SOD (PORCINE) 5000 UNITS/ML VIAL SQ ×2 (08:29→20:32)
[2017-12-21] MEDS: LITHIUM CARBONATE 150 MG CAP PO (08:30)
[2017-12-21] MEDS: guaiFENesin ER 600 MG TAB PO ×2 (08:30→20:31)
[2017-12-21] MEDS: VITAMIN B COMPLEX/VIT C CAP PO (08:30)
[2017-12-21] MEDS: HumaLOG INSULIN (NovoLOG) PER UNIT SC ×6 (08:30→17:08)
[2017-12-21] MEDS: MECLIZINE 25 MG TABLET PO ×3 (08:31→20:30)
[2017-12-21] MEDS: busPIRone 10 MG TAB PO ×3 (08:31→20:31)
[2017-12-21] MEDS: ASPIRIN 81 MG ENTERIC TAB PO (08:31)
[2017-12-21] MEDS: MIRALAX *UNIT DOSE* 17GM PACKET PO (08:31)
[2017-12-21] MEDS: SPIRONOLACTONE 25 MG TAB PO (08:31)
[2017-12-21] MEDS: TORSEMIDE 20 MG TAB PO (08:31)
[2017-12-21] MEDS: **NOTE PATIENT COMMENT** MISC XX (08:32)
[2017-12-21] MEDS: NYSTATIN 100,000 UNITS/GM TOPICAL PWD 15 GM TOP ×2 (08:32→20:32)
[2017-12-21] MEDS: chlorproMAZINE 25 MG TAB (Q0161) PO (20:30)
[2017-12-21] MEDS: LITHIUM CARBONATE 300 MG CAP PO (20:30)
[2017-12-21] MEDS: LIDOCAINE 5% (LIDODERM) PATCH TD (20:31)
[2017-12-21] MEDS: hydrOXYzine 10 MG TAB PO (20:31)
[2017-12-21] MEDS: SIMVASTATIN 20 MG TAB PO (20:31)
[2017-12-21] MEDS: LEVEMIR (INSULIN DETEMIR) 1 UNITS/0.01ML SC (21:00)
[2017-12-22] MEDS: LEVOTHYROXINE 88MCG TABLET (0.088 MG) PO (06:19)
[2017-12-22] MEDS: HumaLOG INSULIN (NovoLOG) PER UNIT SC ×6 (07:40→16:59)
[2017-12-22] MEDS: NYSTATIN 500,000 U/5 ML SUSP UDC SS ×4 (08:19→20:22)
[2017-12-22] MEDS: HEPARIN SOD (PORCINE) 5000 UNITS/ML VIAL SQ ×2 (08:19→20:22)
[2017-12-22] MEDS: VITAMIN B COMPLEX/VIT C CAP PO (08:20)
[2017-12-22] MEDS: MECLIZINE 25 MG TABLET PO ×3 (08:20→20:22)
[2017-12-22] MEDS: SPIRONOLACTONE 25 MG TAB PO (08:20)
[2017-12-22] MEDS: LITHIUM CARBONATE 150 MG CAP PO (08:20)
[2017-12-22] MEDS: guaiFENesin ER 600 MG TAB PO ×2 (08:20→20:23)
[2017-12-22] MEDS: TORSEMIDE 20 MG TAB PO (08:20)
[2017-12-22] MEDS: ASPIRIN 81 MG ENTERIC TAB PO (08:20)
[2017-12-22] MEDS: busPIRone 10 MG TAB PO ×3 (08:24→20:22)
[2017-12-22] MEDS: NYSTATIN 100,000 UNITS/GM TOPICAL PWD 15 GM TOP ×2 (08:25→20:25)
[2017-12-22] MEDS: MIRALAX *UNIT DOSE* 17GM PACKET PO (08:25)
[2017-12-22] MEDS: **NOTE PATIENT COMMENT** MISC XX (08:25)
[2017-12-22] MEDS: hydrOXYzine 10 MG TAB PO (20:22)
[2017-12-22] MEDS: LITHIUM CARBONATE 300 MG CAP PO (20:23)
[2017-12-22] MEDS: SIMVASTATIN 20 MG TAB PO (20:23)
[2017-12-22] MEDS: chlorproMAZINE 25 MG TAB (Q0161) PO (20:23)
[2017-12-22] MEDS: LIDOCAINE 5% (LIDODERM) PATCH TD (20:24)
[2017-12-22] MEDS: LEVEMIR (INSULIN DETEMIR) 1 UNITS/0.01ML SC (20:24)
[2017-12-23] MEDS: LEVOTHYROXINE 88MCG TABLET (0.088 MG) PO (05:54)
[2017-12-23] MEDS: ACETAMINOPHEN TAB 650MG DOSE (2X325MG) PO (05:57)
[2017-12-23] MEDS: NYSTATIN 500,000 U/5 ML SUSP UDC SS ×4 (07:46→20:09)
[2017-12-23] MEDS: HumaLOG INSULIN (NovoLOG) PER UNIT SC ×6 (07:46→16:23)
[2017-12-23] MEDS: MIRALAX *UNIT DOSE* 17GM PACKET PO (07:47)
[2017-12-23] MEDS: HEPARIN SOD (PORCINE) 5000 UNITS/ML VIAL SQ ×2 (07:47→20:10)
[2017-12-23] MEDS: ASPIRIN 81 MG ENTERIC TAB PO (07:47)
[2017-12-23] MEDS: SPIRONOLACTONE 25 MG TAB PO (07:48)
[2017-12-23] MEDS: VITAMIN B COMPLEX/VIT C CAP PO (07:48)
[2017-12-23] MEDS: busPIRone 10 MG TAB PO ×3 (07:48→20:10)
[2017-12-23] MEDS: TORSEMIDE 20 MG TAB PO (07:48)
[2017-12-23] MEDS: MECLIZINE 25 MG TABLET PO ×3 (07:48→20:10)
[2017-12-23] MEDS: guaiFENesin ER 600 MG TAB PO ×2 (07:48→20:10)
[2017-12-23] MEDS: **NOTE PATIENT COMMENT** MISC XX (07:49)
[2017-12-23] MEDS: NYSTATIN 100,000 UNITS/GM TOPICAL PWD 15 GM TOP ×2 (07:49→20:12)
[2017-12-23] MEDS: LITHIUM CARBONATE 150 MG CAP PO (07:49)
[2017-12-23] MEDS: hydrOXYzine 10 MG TAB PO (20:10)
[2017-12-23] MEDS: SIMVASTATIN 20 MG TAB PO (20:10)
[2017-12-23] MEDS: LITHIUM CARBONATE 300 MG CAP PO (20:10)
[2017-12-23] MEDS: chlorproMAZINE 25 MG TAB (Q0161) PO (20:11)
[2017-12-23] MEDS: LEVEMIR (INSULIN DETEMIR) 1 UNITS/0.01ML SC (20:11)
[2017-12-23] MEDS: LIDOCAINE 5% (LIDODERM) PATCH TD (20:11)
[2017-12-24] MEDS: ACETAMINOPHEN TAB 650MG DOSE (2X325MG) PO ×2 (05:44→22:56)
[2017-12-24] MEDS: LEVOTHYROXINE 88MCG TABLET (0.088 MG) PO (05:44)
[2017-12-24 08:22] LABS: LITHIUM LEVEL 0.82 MEQ/L (0.60-1.20)
[2017-12-24] MEDS: HumaLOG INSULIN (NovoLOG) PER UNIT SC ×6 (08:26→18:03)
[2017-12-24] MEDS: MECLIZINE 25 MG TABLET PO ×3 (08:27→20:49)
[2017-12-24] MEDS: VITAMIN B COMPLEX/VIT C CAP PO (08:27)
[2017-12-24] MEDS: TORSEMIDE 20 MG TAB PO (08:27)
[2017-12-24] MEDS: busPIRone 10 MG TAB PO ×3 (08:27→20:50)
[2017-12-24] MEDS: guaiFENesin ER 600 MG TAB PO ×2 (08:27→20:49)
[2017-12-24] MEDS: LITHIUM CARBONATE 150 MG CAP PO (08:27)
[2017-12-24] MEDS: ASPIRIN 81 MG ENTERIC TAB PO (08:27)
[2017-12-24] MEDS: SPIRONOLACTONE 25 MG TAB PO (08:28)
[2017-12-24] MEDS: MIRALAX *UNIT DOSE* 17GM PACKET PO (08:29)
[2017-12-24] MEDS: HEPARIN SOD (PORCINE) 5000 UNITS/ML VIAL SQ ×2 (08:30→20:48)
[2017-12-24] MEDS: NYSTATIN 100,000 UNITS/GM TOPICAL PWD 15 GM TOP ×2 (08:30→20:52)
[2017-12-24] MEDS: **NOTE PATIENT COMMENT** MISC XX (08:31)
[2017-12-24] MEDS: NYSTATIN 500,000 U/5 ML SUSP UDC SS ×4 (08:35→20:48)
[2017-12-24] MEDS: chlorproMAZINE 25 MG TAB (Q0161) PO (20:49)
[2017-12-24] MEDS: LEVEMIR (INSULIN DETEMIR) 1 UNITS/0.01ML SC (20:49)
[2017-12-24] MEDS: SIMVASTATIN 20 MG TAB PO (20:49)
[2017-12-24] MEDS: hydrOXYzine 10 MG TAB PO (20:50)
[2017-12-24] MEDS: LITHIUM CARBONATE 300 MG CAP PO (20:50)
[2017-12-24] MEDS: LIDOCAINE 5% (LIDODERM) PATCH TD (20:59)
[2017-12-25] MEDS: LEVOTHYROXINE 88MCG TABLET (0.088 MG) PO (05:59)
[2017-12-25 07:11] LABS: BASO % 0.4 % (0.0-1.0); EOS % 0.1 % (0.0-3.0); HEMATOCRIT 38.4 % (36.0-47.0); HEMOGLOBIN 12.8 g/dl (12.0-15.5); IMMATURE GRANULOCYTE % 1.1 % (0-3.0); LYMPH # 2.5 10^3/uL (1.5-4.5); LYMPH % 24.4 % (24.0-44.0); MEAN CORPUSCULAR HGB CONC 33.3 g/dl (32.0-36.5); MEAN CORPUSCULAR VOLUME 89.9 fl (80.0-96.0); MONO % 9.5 % (0.0-5.0); NEUTROPHILS # 6.6 10^3/uL (1.8-7.7); NEUTROPHILS % 64.5 % (36.0-66.0); PLATELET COUNT, AUTOMATED 327 10^3/uL (150-450); RED BLOOD COUNT 4.27 10^6/uL (4.00-5.40); RED CELL DISTRIBUTION WIDTH 13.7 % (11.5-14.5); WHITE BLOOD COUNT 10.2 10^3/uL (4.0-10.0)
[2017-12-25 07:43] LABS: ANION GAP 8 MEQ/L (8-16); BLOOD UREA NITROGEN 30 MG/DL (7-18); CALCIUM LEVEL 11.3 MG/DL (8.8-10.2); CARBON DIOXIDE LEVEL 23 MEQ/L (21-32); CHLORIDE LEVEL 106 MEQ/L (98-107); CREATININE FOR GFR 1.35 MG/DL (0.55-1.30); GLOMERULAR FILTRATION RATE 40.6 (>39); GLUCOSE, FASTING 187 MG/DL (70-100); POTASSIUM SERUM 4.2 MEQ/L (3.5-5.1); SODIUM LEVEL 137 MEQ/L (136-145)
[2017-12-25] MEDS: HumaLOG INSULIN (NovoLOG) PER UNIT SC ×6 (08:30→17:54)
[2017-12-25] MEDS: HEPARIN SOD (PORCINE) 5000 UNITS/ML VIAL SQ ×2 (08:32→20:23)
[2017-12-25] MEDS: MECLIZINE 25 MG TABLET PO ×3 (08:32→20:25)
[2017-12-25] MEDS: TORSEMIDE 20 MG TAB PO (08:32)
[2017-12-25] MEDS: busPIRone 10 MG TAB PO ×3 (08:32→20:25)
[2017-12-25] MEDS: LITHIUM CARBONATE 150 MG CAP PO (08:32)
[2017-12-25] MEDS: guaiFENesin ER 600 MG TAB PO ×2 (08:32→20:24)
[2017-12-25] MEDS: VITAMIN B COMPLEX/VIT C CAP PO (08:32)
[2017-12-25] MEDS: SPIRONOLACTONE 25 MG TAB PO (08:32)
[2017-12-25] MEDS: NYSTATIN 500,000 U/5 ML SUSP UDC SS ×4 (08:32→20:23)
[2017-12-25] MEDS: NYSTATIN 100,000 UNITS/GM TOPICAL PWD 15 GM TOP ×2 (08:33→20:25)
[2017-12-25] MEDS: ASPIRIN 81 MG ENTERIC TAB PO (08:33)
[2017-12-25] MEDS: MIRALAX *UNIT DOSE* 17GM PACKET PO (08:33)
[2017-12-25] MEDS: **NOTE PATIENT COMMENT** MISC XX (08:34)
[2017-12-25] MEDS: LIDOCAINE 5% (LIDODERM) PATCH TD (20:23)
[2017-12-25] MEDS: chlorproMAZINE 25 MG TAB (Q0161) PO (20:24)
[2017-12-25] MEDS: hydrOXYzine 10 MG TAB PO (20:24)
[2017-12-25] MEDS: SIMVASTATIN 20 MG TAB PO (20:24)
[2017-12-25] MEDS: ACETAMINOPHEN TAB 650MG DOSE (2X325MG) PO (20:24)
[2017-12-25] MEDS: LITHIUM CARBONATE 300 MG CAP PO (20:25)
[2017-12-25] MEDS: LEVEMIR (INSULIN DETEMIR) 1 UNITS/0.01ML SC (20:25)
[2017-12-26] MEDS: LEVOTHYROXINE 88MCG TABLET (0.088 MG) PO (05:43)
[2017-12-26] MEDS: HumaLOG INSULIN (NovoLOG) PER UNIT SC ×6 (07:30→17:28)
[2017-12-26] MEDS: FLUTICASONE PROP 0.05% NASAL SPRAY 16 GM (FLONASE) NARES ×2 (09:00→23:00)
[2017-12-26] MEDS: **NOTE PATIENT COMMENT** MISC XX (09:00)
[2017-12-26] MEDS: NYSTATIN 100,000 UNITS/GM TOPICAL PWD 15 GM TOP ×2 (09:00→21:00)
[2017-12-26] MEDS: HEPARIN SOD (PORCINE) 5000 UNITS/ML VIAL SQ ×2 (09:08→22:57)
[2017-12-26] MEDS: VITAMIN B COMPLEX/VIT C CAP PO (09:08)
[2017-12-26] MEDS: ACETAMINOPHEN TAB 650MG DOSE (2X325MG) PO ×2 (09:09→22:57)
[2017-12-26] MEDS: NYSTATIN 500,000 U/5 ML SUSP UDC SS ×4 (09:09→22:57)
[2017-12-26] MEDS: MIRALAX *UNIT DOSE* 17GM PACKET PO (09:09)
[2017-12-26] MEDS: busPIRone 10 MG TAB PO ×3 (09:10→22:59)
[2017-12-26] MEDS: guaiFENesin ER 600 MG TAB PO ×2 (09:10→22:59)
[2017-12-26] MEDS: ASPIRIN 81 MG ENTERIC TAB PO (09:10)
[2017-12-26] MEDS: TORSEMIDE 20 MG TAB PO (09:10)
[2017-12-26] MEDS: SPIRONOLACTONE 25 MG TAB PO (09:10)
[2017-12-26] MEDS: MECLIZINE 25 MG TABLET PO ×3 (09:10→22:59)
[2017-12-26] MEDS: LITHIUM CARBONATE 150 MG CAP PO (09:11)
[2017-12-26] MEDS: SODIUM CHLORIDE NASAL 0.65% SPRAY BTL (OCEAN) ×3 (10:45→23:05)
[2017-12-26] MEDS: LEVEMIR (INSULIN DETEMIR) 1 UNITS/0.01ML SC (21:00)
[2017-12-26] MEDS: chlorproMAZINE 25 MG TAB (Q0161) PO (22:58)
[2017-12-26] MEDS: hydrOXYzine 10 MG TAB PO (22:59)
[2017-12-26] MEDS: SIMVASTATIN 20 MG TAB PO (22:59)
[2017-12-26] MEDS: LIDOCAINE 5% (LIDODERM) PATCH TD (23:00)
[2017-12-26] MEDS: LITHIUM CARBONATE 300 MG CAP PO (23:03)
[2017-12-27] MEDS: LEVOTHYROXINE 88MCG TABLET (0.088 MG) PO (05:54)
[2017-12-27 06:08] LABS: KETONE, URINE AUTO RFX NEGATIVE (NEGATIVE); LEUKOCYTE ESTERASE UR AUTO RFX NEGATIVE (NEGATIVE); NITRITE, URINE AUTO RFX NEGATIVE (NEGATIVE); RBC, URINE AUTO RFX 1 /HPF (0-3); SPECIFIC GRAVITY UR AUTO RFX 1.004 (1.002-1.035); SQUAM EPITHELIAL CELL UR AURFX 1 /HPF (0-6); WBC, URINE AUTO RFX 0 /HPF (0-3)
[2017-12-27] MEDS: HumaLOG INSULIN (NovoLOG) PER UNIT SC ×6 (07:30→18:01)
[2017-12-27] MEDS: NYSTATIN 500,000 U/5 ML SUSP UDC SS (08:11)
[2017-12-27] MEDS: busPIRone 10 MG TAB PO ×3 (08:12→20:18)
[2017-12-27] MEDS: HEPARIN SOD (PORCINE) 5000 UNITS/ML VIAL SQ ×2 (08:12→20:18)
[2017-12-27] MEDS: ASPIRIN 81 MG ENTERIC TAB PO (08:12)
[2017-12-27] MEDS: MECLIZINE 25 MG TABLET PO ×3 (08:12→20:19)
[2017-12-27] MEDS: guaiFENesin ER 600 MG TAB PO ×2 (08:12→20:18)
[2017-12-27] MEDS: SPIRONOLACTONE 25 MG TAB PO (08:13)
[2017-12-27] MEDS: VITAMIN B COMPLEX/VIT C CAP PO (08:13)
[2017-12-27] MEDS: TORSEMIDE 20 MG TAB PO (08:14)
[2017-12-27] MEDS: MIRALAX *UNIT DOSE* 17GM PACKET PO (08:15)
[2017-12-27] MEDS: FLUTICASONE PROP 0.05% NASAL SPRAY 16 GM (FLONASE) NARES ×2 (08:15→20:22)
[2017-12-27] MEDS: NYSTATIN 100,000 UNITS/GM TOPICAL PWD 15 GM TOP ×2 (08:16→20:24)
[2017-12-27] MEDS: SODIUM CHLORIDE NASAL 0.65% SPRAY BTL (OCEAN) ×3 (08:17→20:23)
[2017-12-27] MEDS: LITHIUM CARBONATE 150 MG CAP PO (08:41)
[2017-12-27] MEDS: ACETAMINOPHEN TAB 650MG DOSE (2X325MG) PO (08:42)
[2017-12-27] MEDS: **NOTE PATIENT COMMENT** MISC XX (09:00)
[2017-12-27] MEDS: LEVEMIR (INSULIN DETEMIR) 1 UNITS/0.01ML SC (20:17)
[2017-12-27] MEDS: SIMVASTATIN 20 MG TAB PO (20:18)
[2017-12-27] MEDS: chlorproMAZINE 25 MG TAB (Q0161) PO (20:18)
[2017-12-27] MEDS: hydrOXYzine 10 MG TAB PO (20:19)
[2017-12-27] MEDS: LIDOCAINE 5% (LIDODERM) PATCH TD (20:22)
[2017-12-27] MEDS: LITHIUM CARBONATE 300 MG CAP PO (20:22)
[2017-12-28] MEDS: LEVOTHYROXINE 88MCG TABLET (0.088 MG) PO (05:57)
[2017-12-28] MEDS: HumaLOG INSULIN (NovoLOG) PER UNIT SC ×6 (07:30→16:48)
[2017-12-28] MEDS: HEPARIN SOD (PORCINE) 5000 UNITS/ML VIAL SQ ×2 (08:44→22:02)
[2017-12-28] MEDS: MIRALAX *UNIT DOSE* 17GM PACKET PO (08:44)
[2017-12-28] MEDS: ASPIRIN 81 MG ENTERIC TAB PO (08:45)
[2017-12-28] MEDS: LITHIUM CARBONATE 150 MG CAP PO (08:45)
[2017-12-28] MEDS: TORSEMIDE 20 MG TAB PO (08:45)
[2017-12-28] MEDS: MECLIZINE 25 MG TABLET PO ×3 (08:45→22:04)
[2017-12-28] MEDS: SODIUM CHLORIDE NASAL 0.65% SPRAY BTL (OCEAN) ×3 (08:45→22:05)
[2017-12-28] MEDS: VITAMIN B COMPLEX/VIT C CAP PO (08:45)
[2017-12-28] MEDS: busPIRone 10 MG TAB PO ×3 (08:45→22:04)
[2017-12-28] MEDS: SPIRONOLACTONE 25 MG TAB PO (08:45)
[2017-12-28] MEDS: guaiFENesin ER 600 MG TAB PO ×2 (08:47→22:04)
[2017-12-28] MEDS: **NOTE PATIENT COMMENT** MISC XX (08:47)
[2017-12-28] MEDS: NYSTATIN 100,000 UNITS/GM TOPICAL PWD 15 GM TOP ×2 (08:47→22:07)
[2017-12-28] MEDS: FLUTICASONE PROP 0.05% NASAL SPRAY 16 GM (FLONASE) NARES ×2 (08:47→22:05)
[2017-12-28] MEDS: LEVEMIR (INSULIN DETEMIR) 1 UNITS/0.01ML SC (22:03)
[2017-12-28] MEDS: chlorproMAZINE 25 MG TAB (Q0161) PO (22:03)
[2017-12-28] MEDS: LITHIUM CARBONATE 300 MG CAP PO (22:04)
[2017-12-28] MEDS: hydrOXYzine 10 MG TAB PO (22:04)
[2017-12-28] MEDS: SIMVASTATIN 20 MG TAB PO (22:04)
[2017-12-28] MEDS: LIDOCAINE 5% (LIDODERM) PATCH TD (22:06)
[2017-12-28] MEDS: ACETAMINOPHEN TAB 650MG DOSE (2X325MG) PO (22:20)
[2017-12-29] MEDS: LEVOTHYROXINE 88MCG TABLET (0.088 MG) PO (06:15)
[2017-12-29 06:48] LABS: BASO # 0.1 10^3/uL (0.0-0.2); BASO % 0.5 % (0.0-1.0); EOS % 0.1 % (0.0-3.0); HEMATOCRIT 38.9 % (36.0-47.0); HEMOGLOBIN 12.7 g/dl (12.0-15.5); IMMATURE GRANULOCYTE % 0.9 % (0-3.0); LYMPH # 1.9 10^3/uL (1.5-4.5); LYMPH % 17.6 % (24.0-44.0); MEAN CORPUSCULAR HEMOGLOBIN 29.9 pg (27.0-33.0); MEAN CORPUSCULAR HGB CONC 32.6 g/dl (32.0-36.5); MEAN CORPUSCULAR VOLUME 91.5 fl (80.0-96.0); MONO # 0.8 10^3/uL (0.0-0.8); MONO % 7.3 % (0.0-5.0); NEUTROPHILS % 73.6 % (36.0-66.0); PLATELET COUNT, AUTOMATED 354 10^3/uL (150-450); RED BLOOD COUNT 4.25 10^6/uL (4.00-5.40); RED CELL DISTRIBUTION WIDTH 13.8 % (11.5-14.5); WHITE BLOOD COUNT 10.9 10^3/uL (4.0-10.0)
[2017-12-29 07:26] LABS: ANION GAP 7 MEQ/L (8-16); BLOOD UREA NITROGEN 30 MG/DL (7-18); CALCIUM LEVEL 11.4 MG/DL (8.8-10.2); CARBON DIOXIDE LEVEL 25 MEQ/L (21-32); CHLORIDE LEVEL 104 MEQ/L (98-107); CREATININE FOR GFR 1.24 MG/DL (0.55-1.30); GLOMERULAR FILTRATION RATE 44.8 (>39); GLUCOSE, FASTING 210 MG/DL (70-100); LITHIUM LEVEL 0.93 MEQ/L (0.60-1.20); POTASSIUM SERUM 4.7 MEQ/L (3.5-5.1); SODIUM LEVEL 136 MEQ/L (136-145)
[2017-12-29] MEDS: MIRALAX *UNIT DOSE* 17GM PACKET PO (09:23)
[2017-12-29] MEDS: HEPARIN SOD (PORCINE) 5000 UNITS/ML VIAL SQ ×2 (09:23→21:38)
[2017-12-29] MEDS: LITHIUM CARBONATE 150 MG CAP PO (09:24)
[2017-12-29] MEDS: guaiFENesin ER 600 MG TAB PO ×2 (09:24→21:39)
[2017-12-29] MEDS: VITAMIN B COMPLEX/VIT C CAP PO (09:24)
[2017-12-29] MEDS: SPIRONOLACTONE 25 MG TAB PO (09:24)
[2017-12-29] MEDS: MECLIZINE 25 MG TABLET PO ×3 (09:24→21:38)
[2017-12-29] MEDS: ASPIRIN 81 MG ENTERIC TAB PO (09:24)
[2017-12-29] MEDS: ACETAMINOPHEN TAB 650MG DOSE (2X325MG) PO ×2 (09:25→22:15)
[2017-12-29] MEDS: TORSEMIDE 20 MG TAB PO (09:25)
[2017-12-29] MEDS: busPIRone 10 MG TAB PO ×3 (09:25→21:38)
[2017-12-29] MEDS: HumaLOG INSULIN (NovoLOG) PER UNIT SC ×6 (09:26→17:22)
[2017-12-29] MEDS: **NOTE PATIENT COMMENT** MISC XX (09:27)
[2017-12-29] MEDS: FLUTICASONE PROP 0.05% NASAL SPRAY 16 GM (FLONASE) NARES ×2 (09:27→21:40)
[2017-12-29] MEDS: SODIUM CHLORIDE NASAL 0.65% SPRAY BTL (OCEAN) ×3 (09:28→21:40)
[2017-12-29] MEDS: NYSTATIN 100,000 UNITS/GM TOPICAL PWD 15 GM TOP ×2 (09:29→21:41)
[2017-12-29 17:06] LABS: BEDSIDE GLUCOSE 177 MG/DL (83-110)
[2017-12-29 20:23] LABS: BEDSIDE GLUCOSE 89 MG/DL (83-110)
[2017-12-29] MEDS: LEVEMIR (INSULIN DETEMIR) 1 UNITS/0.01ML SC (21:00)
[2017-12-29] MEDS: LITHIUM CARBONATE 300 MG CAP PO (21:38)
[2017-12-29] MEDS: SIMVASTATIN 20 MG TAB PO (21:39)
[2017-12-29] MEDS: chlorproMAZINE 25 MG TAB (Q0161) PO (21:39)
[2017-12-29] MEDS: hydrOXYzine 10 MG TAB PO (21:39)
[2017-12-29] MEDS: LIDOCAINE 5% (LIDODERM) PATCH TD (21:40)
[2017-12-30] MEDS: LEVOTHYROXINE 88MCG TABLET (0.088 MG) PO (05:56)
[2017-12-30] MEDS: MIRALAX *UNIT DOSE* 17GM PACKET PO (09:16)
[2017-12-30] MEDS: HEPARIN SOD (PORCINE) 5000 UNITS/ML VIAL SQ ×2 (09:16→21:10)
[2017-12-30] MEDS: LITHIUM CARBONATE 150 MG CAP PO (09:17)
[2017-12-30] MEDS: busPIRone 10 MG TAB PO ×3 (09:17→21:12)
[2017-12-30] MEDS: TORSEMIDE 20 MG TAB PO (09:17)
[2017-12-30] MEDS: guaiFENesin ER 600 MG TAB PO ×2 (09:17→21:12)
[2017-12-30] MEDS: MECLIZINE 25 MG TABLET PO ×3 (09:17→21:12)
[2017-12-30] MEDS: VITAMIN B COMPLEX/VIT C CAP PO (09:17)
[2017-12-30] MEDS: ASPIRIN 81 MG ENTERIC TAB PO (09:17)
[2017-12-30] MEDS: HumaLOG INSULIN (NovoLOG) PER UNIT SC ×6 (09:18→17:29)
[2017-12-30] MEDS: SPIRONOLACTONE 25 MG TAB PO (09:18)
[2017-12-30] MEDS: NYSTATIN 100,000 UNITS/GM TOPICAL PWD 15 GM TOP ×2 (09:19→21:14)
[2017-12-30] MEDS: FLUTICASONE PROP 0.05% NASAL SPRAY 16 GM (FLONASE) NARES ×2 (09:19→21:13)
[2017-12-30] MEDS: **NOTE PATIENT COMMENT** MISC XX (09:19)
[2017-12-30] MEDS: SODIUM CHLORIDE NASAL 0.65% SPRAY BTL (OCEAN) ×3 (09:20→21:13)
[2017-12-30] MEDS: HYDROCORTISONE 1% CREAM 30 GM TOP ×2 (17:30→21:10)
[2017-12-30 19:42] LABS: BEDSIDE GLUCOSE 198 MG/DL (83-110)
[2017-12-30] MEDS ORDERED: LITHIUM CARBONATE 150 MG CAP PO (21:00)
[2017-12-30] MEDS: LIDOCAINE 5% (LIDODERM) PATCH TD (21:11)
[2017-12-30] MEDS: chlorproMAZINE 25 MG TAB (Q0161) PO (21:11)
[2017-12-30] MEDS: LEVEMIR (INSULIN DETEMIR) 1 UNITS/0.01ML SC (21:11)
[2017-12-30] MEDS: ACETAMINOPHEN TAB 650MG DOSE (2X325MG) PO (21:12)
[2017-12-30] MEDS: SIMVASTATIN 20 MG TAB PO (21:12)
[2017-12-30] MEDS: hydrOXYzine 10 MG TAB PO (21:13)
[2017-12-30] MEDS: LITHIUM CARBONATE 300 MG CAP PO (21:13)
[2017-12-31] MEDS: LEVOTHYROXINE 88MCG TABLET (0.088 MG) PO (06:08)
[2017-12-31] MEDS: **NOTE PATIENT COMMENT** MISC XX (09:00)
[2017-12-31] MEDS: MIRALAX *UNIT DOSE* 17GM PACKET PO (09:00)
[2017-12-31] MEDS: HumaLOG INSULIN (NovoLOG) PER UNIT SC ×6 (09:47→16:47)
[2017-12-31] MEDS: busPIRone 10 MG TAB PO ×3 (09:48→20:42)
[2017-12-31] MEDS: TORSEMIDE 20 MG TAB PO (09:48)
[2017-12-31] MEDS: MECLIZINE 25 MG TABLET PO ×3 (09:48→20:42)
[2017-12-31] MEDS: LITHIUM CARBONATE 150 MG CAP PO (09:48)
[2017-12-31] MEDS: ASPIRIN 81 MG ENTERIC TAB PO (09:48)
[2017-12-31] MEDS: guaiFENesin ER 600 MG TAB PO ×2 (09:48→20:42)
[2017-12-31] MEDS: SPIRONOLACTONE 25 MG TAB PO (09:49)
[2017-12-31] MEDS: SODIUM CHLORIDE NASAL 0.65% SPRAY BTL (OCEAN) ×3 (09:49→20:43)
[2017-12-31] MEDS: FLUTICASONE PROP 0.05% NASAL SPRAY 16 GM (FLONASE) NARES ×2 (09:50→20:43)
[2017-12-31] MEDS: HYDROCORTISONE 1% CREAM 30 GM TOP ×3 (09:50→20:47)
[2017-12-31] MEDS: NYSTATIN 100,000 UNITS/GM TOPICAL PWD 15 GM TOP ×2 (09:51→20:47)
[2017-12-31] MEDS: HEPARIN SOD (PORCINE) 5000 UNITS/ML VIAL SQ ×2 (10:07→20:42)
[2017-12-31] MEDS: VITAMIN B COMPLEX/VIT C CAP PO (10:07)
[2017-12-31] MEDS: LITHIUM CARBONATE 300 MG CAP PO (20:42)
[2017-12-31] MEDS: SIMVASTATIN 20 MG TAB PO (20:42)
[2017-12-31] MEDS: LEVEMIR (INSULIN DETEMIR) 1 UNITS/0.01ML SC (20:42)
[2017-12-31] MEDS: hydrOXYzine 10 MG TAB PO (20:42)
[2017-12-31] MEDS: chlorproMAZINE 25 MG TAB (Q0161) PO (20:43)
[2017-12-31] MEDS: LIDOCAINE 5% (LIDODERM) PATCH TD ×2 (20:52→20:53)
[2018-01-01] MEDS: BACITRACIN OINT 30GM TOP ×2 (00:18→21:00)
[2018-01-01] MEDS: LEVOTHYROXINE 88MCG TABLET (0.088 MG) PO (07:00)
[2018-01-01] MEDS: HumaLOG INSULIN (NovoLOG) PER UNIT SC ×4 (07:30→17:00)
[2018-01-01] MEDS: **NOTE PATIENT COMMENT** MISC XX (09:00)
[2018-01-01] MEDS: SPIRONOLACTONE 25 MG TAB PO (09:28)
[2018-01-01] MEDS: VITAMIN B COMPLEX/VIT C CAP PO (09:29)
[2018-01-01] MEDS: ASPIRIN 81 MG ENTERIC TAB PO (09:29)
[2018-01-01] MEDS: busPIRone 10 MG TAB PO ×3 (09:29→22:15)
[2018-01-01] MEDS: HEPARIN SOD (PORCINE) 5000 UNITS/ML VIAL SQ ×2 (09:29→22:14)
[2018-01-01] MEDS: guaiFENesin ER 600 MG TAB PO ×2 (09:29→22:15)
[2018-01-01] MEDS: MECLIZINE 25 MG TABLET PO ×3 (09:29→22:14)
[2018-01-01] MEDS: LITHIUM CARBONATE 300 MG CAP PO ×2 (09:29→22:15)
[2018-01-01] MEDS: FLUTICASONE PROP 0.05% NASAL SPRAY 16 GM (FLONASE) NARES ×2 (09:32→22:17)
[2018-01-01] MEDS: SODIUM CHLORIDE NASAL 0.65% SPRAY BTL (OCEAN) ×3 (09:32→22:17)
[2018-01-01] MEDS: MIRALAX *UNIT DOSE* 17GM PACKET PO (09:38)
[2018-01-01] MEDS: TORSEMIDE 20 MG TAB PO (09:38)
[2018-01-01] MEDS: NYSTATIN 100,000 UNITS/GM TOPICAL PWD 15 GM TOP ×2 (09:48→21:00)
[2018-01-01] MEDS: HYDROCORTISONE 1% CREAM 30 GM TOP ×3 (16:00→21:00)
[2018-01-01] MEDS: LIDOCAINE 5% (LIDODERM) PATCH TD (21:00)
[2018-01-01] MEDS: chlorproMAZINE 25 MG TAB (Q0161) PO (22:14)
[2018-01-01] MEDS: hydrOXYzine 10 MG TAB PO (22:15)
[2018-01-01] MEDS: SIMVASTATIN 20 MG TAB PO (22:15)
[2018-01-01] MEDS: LEVEMIR (INSULIN DETEMIR) 1 UNITS/0.01ML SC (22:34)
[2018-01-02] MEDS: LEVOTHYROXINE 88MCG TABLET (0.088 MG) PO (06:42)
[2018-01-02] MEDS: **NOTE PATIENT COMMENT** MISC XX (09:00)
[2018-01-02] MEDS: HYDROCORTISONE 1% CREAM 30 GM TOP ×3 (09:00→23:14)
[2018-01-02] MEDS: SODIUM CHLORIDE NASAL 0.65% SPRAY BTL (OCEAN) ×3 (09:01→23:13)
[2018-01-02] MEDS: FLUTICASONE PROP 0.05% NASAL SPRAY 16 GM (FLONASE) NARES ×2 (09:01→23:13)
[2018-01-02] MEDS: MIRALAX *UNIT DOSE* 17GM PACKET PO (09:01)
[2018-01-02] MEDS: HEPARIN SOD (PORCINE) 5000 UNITS/ML VIAL SQ ×2 (09:02→23:09)
[2018-01-02] MEDS: VITAMIN B COMPLEX/VIT C CAP PO (09:03)
[2018-01-02] MEDS: SPIRONOLACTONE 25 MG TAB PO (09:03)
[2018-01-02] MEDS: HumaLOG INSULIN (NovoLOG) PER UNIT SC ×3 (09:03→17:03)
[2018-01-02] MEDS: guaiFENesin ER 600 MG TAB PO ×2 (09:04→23:11)
[2018-01-02] MEDS: MECLIZINE 25 MG TABLET PO ×3 (09:04→23:11)
[2018-01-02] MEDS: ASPIRIN 81 MG ENTERIC TAB PO (09:04)
[2018-01-02] MEDS: TORSEMIDE 20 MG TAB PO (09:05)
[2018-01-02] MEDS: busPIRone 10 MG TAB PO ×3 (09:05→23:11)
[2018-01-02] MEDS: LITHIUM CARBONATE 150 MG CAP PO (09:05)
[2018-01-02] MEDS: NYSTATIN 100,000 UNITS/GM TOPICAL PWD 15 GM TOP ×2 (09:08→23:14)
[2018-01-02] MEDS: LITHIUM CARBONATE 300 MG CAP PO (23:10)
[2018-01-02] MEDS: chlorproMAZINE 25 MG TAB (Q0161) PO (23:10)
[2018-01-02] MEDS: SIMVASTATIN 20 MG TAB PO (23:10)
[2018-01-02] MEDS: hydrOXYzine 10 MG TAB PO (23:10)
[2018-01-02] MEDS: LEVEMIR (INSULIN DETEMIR) 1 UNITS/0.01ML SC (23:11)
[2018-01-02] MEDS: LIDOCAINE 5% (LIDODERM) PATCH TD (23:12)
[2018-01-02] MEDS: BACITRACIN OINT 30GM TOP (23:17)
[2018-01-03] MEDS: LEVOTHYROXINE 88MCG TABLET (0.088 MG) PO (06:06)
[2018-01-03 06:43] LABS: LITHIUM LEVEL 0.94 MEQ/L (0.60-1.20)
[2018-01-03] MEDS: MIRALAX *UNIT DOSE* 17GM PACKET PO (08:22)
[2018-01-03] MEDS: busPIRone 10 MG TAB PO ×3 (08:22→21:56)
[2018-01-03] MEDS: HumaLOG INSULIN (NovoLOG) PER UNIT SC ×3 (08:22→17:55)
[2018-01-03] MEDS: VITAMIN B COMPLEX/VIT C CAP PO (08:22)
[2018-01-03] MEDS: LITHIUM CARBONATE 300 MG CAP PO ×2 (08:23→21:56)
[2018-01-03] MEDS: ASPIRIN 81 MG ENTERIC TAB PO (08:23)
[2018-01-03] MEDS: guaiFENesin ER 600 MG TAB PO ×2 (08:23→21:55)
[2018-01-03] MEDS: MECLIZINE 25 MG TABLET PO ×3 (08:23→21:55)
[2018-01-03] MEDS: SPIRONOLACTONE 25 MG TAB PO (08:24)
[2018-01-03] MEDS: TORSEMIDE 20 MG TAB PO (08:24)
[2018-01-03] MEDS: HEPARIN SOD (PORCINE) 5000 UNITS/ML VIAL SQ ×2 (08:25→21:55)
[2018-01-03] MEDS: FLUTICASONE PROP 0.05% NASAL SPRAY 16 GM (FLONASE) NARES ×2 (08:25→22:04)
[2018-01-03] MEDS: SODIUM CHLORIDE NASAL 0.65% SPRAY BTL (OCEAN) ×3 (08:25→22:04)
[2018-01-03] MEDS: HYDROCORTISONE 1% CREAM 30 GM TOP ×3 (08:26→22:03)
[2018-01-03] MEDS: NYSTATIN 100,000 UNITS/GM TOPICAL PWD 15 GM TOP ×2 (08:26→22:05)
[2018-01-03] MEDS: **NOTE PATIENT COMMENT** MISC XX (08:27)
[2018-01-03] MEDS: ACETAMINOPHEN TAB 650MG DOSE (2X325MG) PO ×2 (16:20→22:14)
[2018-01-03] MEDS: hydrOXYzine 10 MG TAB PO (21:56)
[2018-01-03] MEDS: SIMVASTATIN 20 MG TAB PO (21:56)
[2018-01-03] MEDS: chlorproMAZINE 25 MG TAB (Q0161) PO (21:57)
[2018-01-03] MEDS: LEVEMIR (INSULIN DETEMIR) 1 UNITS/0.01ML SC (21:57)
[2018-01-03] MEDS: LIDOCAINE 5% (LIDODERM) PATCH TD ×2 (22:00→22:04)
[2018-01-03] MEDS: BACITRACIN OINT 30GM TOP (22:03)
[2018-01-04] MEDS: LEVOTHYROXINE 88MCG TABLET (0.088 MG) PO (05:53)
[2018-01-04] MEDS: MIRALAX *UNIT DOSE* 17GM PACKET PO (08:50)
[2018-01-04] MEDS: SPIRONOLACTONE 25 MG TAB PO (08:50)
[2018-01-04] MEDS: ASPIRIN 81 MG ENTERIC TAB PO (08:50)
[2018-01-04] MEDS: guaiFENesin ER 600 MG TAB PO ×2 (08:50→20:24)
[2018-01-04] MEDS: TORSEMIDE 20 MG TAB PO (08:50)
[2018-01-04] MEDS: HEPARIN SOD (PORCINE) 5000 UNITS/ML VIAL SQ (08:50)
[2018-01-04] MEDS: HumaLOG INSULIN (NovoLOG) PER UNIT SC ×3 (08:51→16:43)
[2018-01-04] MEDS: LITHIUM CARBONATE 150 MG CAP PO (08:51)
[2018-01-04] MEDS: VITAMIN B COMPLEX/VIT C CAP PO (08:51)
[2018-01-04] MEDS: MECLIZINE 25 MG TABLET PO ×3 (08:51→20:23)
[2018-01-04] MEDS: busPIRone 10 MG TAB PO ×3 (08:51→20:23)
[2018-01-04] MEDS: NYSTATIN 100,000 UNITS/GM TOPICAL PWD 15 GM TOP ×2 (08:52→20:26)
[2018-01-04] MEDS: **NOTE PATIENT COMMENT** MISC XX (08:52)
[2018-01-04] MEDS: SODIUM CHLORIDE NASAL 0.65% SPRAY BTL (OCEAN) ×3 (08:53→20:24)
[2018-01-04] MEDS: FLUTICASONE PROP 0.05% NASAL SPRAY 16 GM (FLONASE) NARES ×2 (08:53→20:25)
[2018-01-04] MEDS: HYDROCORTISONE 1% CREAM 30 GM TOP ×3 (08:53→20:27)
[2018-01-04] MEDS: ACETAMINOPHEN TAB 650MG DOSE (2X325MG) PO (15:50)
[2018-01-04] MEDS: LEVEMIR (INSULIN DETEMIR) 1 UNITS/0.01ML SC (20:22)
[2018-01-04] MEDS: LIDOCAINE 5% (LIDODERM) PATCH TD (20:23)
[2018-01-04] MEDS: chlorproMAZINE 25 MG TAB (Q0161) PO (20:23)
[2018-01-04] MEDS: LITHIUM CARBONATE 300 MG CAP PO (20:24)
[2018-01-04] MEDS: hydrOXYzine 10 MG TAB PO (20:24)
[2018-01-04] MEDS: BACITRACIN OINT 30GM TOP (20:26)
[2018-01-04] MEDS: SIMVASTATIN 20 MG TAB PO (20:29)
[2018-01-05] MEDS: LEVOTHYROXINE 88MCG TABLET (0.088 MG) PO (06:28)
[2018-01-05] MEDS: HumaLOG INSULIN (NovoLOG) PER UNIT SC ×2 (08:11→12:06)
[2018-01-05] MEDS: TORSEMIDE 20 MG TAB PO (08:13)
[2018-01-05] MEDS: ASPIRIN 81 MG ENTERIC TAB PO (08:13)
[2018-01-05] MEDS: MECLIZINE 25 MG TABLET PO (08:13)
[2018-01-05] MEDS: VITAMIN B COMPLEX/VIT C CAP PO (08:13)
[2018-01-05] MEDS: SPIRONOLACTONE 25 MG TAB PO (08:13)
[2018-01-05] MEDS: busPIRone 10 MG TAB PO (08:13)
[2018-01-05] MEDS: guaiFENesin ER 600 MG TAB PO (08:13)
[2018-01-05] MEDS: MIRALAX *UNIT DOSE* 17GM PACKET PO (08:13)
[2018-01-05] MEDS: LITHIUM CARBONATE 150 MG CAP PO (08:13)
[2018-01-05] MEDS: FLUTICASONE PROP 0.05% NASAL SPRAY 16 GM (FLONASE) NARES (08:14)
[2018-01-05] MEDS: NYSTATIN 100,000 UNITS/GM TOPICAL PWD 15 GM TOP (08:14)
[2018-01-05] MEDS: SODIUM CHLORIDE NASAL 0.65% SPRAY BTL (OCEAN) (08:14)
[2018-01-05] MEDS: HYDROCORTISONE 1% CREAM 30 GM TOP (08:15)
[2018-01-05] MEDS: **NOTE PATIENT COMMENT** MISC XX (08:15)
[2018-01-05] MEDS: ACETAMINOPHEN TAB 650MG DOSE (2X325MG) PO (10:18)
== END 2018-01-05 15:57 | disposition home or self-care (01) | DRG 948 ==
LOC: M PM&R 14:00
PROVIDERS: Physical Medicine & Rehabilitation
DX: R53.81 Other malaise (principal); I50.32 Chronic diastolic (congestive) heart failure; Z95.0 Presence of cardiac pacemaker; E03.9 Hypothyroidism, unspecified; F31.9 Bipolar disorder, unspecified; E11.9 Type 2 diabetes mellitus without complications; M54.2 Cervicalgia; Z79.82 Long term (current) use of aspirin; Z79.4 Long term (current) use of insulin; Z79.899 Other long term (current) drug therapy; Z91.030 Bee allergy status; Z88.2 Allergy status to sulfonamides; Z88.8 Allergy status to other drugs, medicaments and biological substances; Z88.1 Allergy status to other antibiotic agents; Z88.0 Allergy status to penicillin; Z88.6 Allergy status to analgesic agent; I44.0 Atrioventricular block, first degree; I27.20 Pulmonary hypertension, unspecified; I11.0 Hypertensive heart disease with heart failure; B35.1 Tinea unguium

== ENCOUNTER 2018-01-08 08:56 | Inpatient (IN) | payer MEDICARE, MEDICAID ==
[2018-01-08 10:28] LABS: HEMATOCRIT 35.4 % (36.0-47.0); HEMOGLOBIN 11.9 g/dl (12.0-15.5); MEAN CORPUSCULAR HEMOGLOBIN 30.5 pg (27.0-33.0); MEAN CORPUSCULAR HGB CONC 33.6 g/dl (32.0-36.5); MEAN CORPUSCULAR VOLUME 90.8 fl (80.0-96.0); PLATELET COUNT, AUTOMATED 241 10^3/uL (150-450); RED CELL DISTRIBUTION WIDTH 13.9 % (11.5-14.5); WHITE BLOOD COUNT 19.9 10^3/uL (4.0-10.0)
[2018-01-08] MEDS: ADACEL/BOOSTRIX VACCINE (DIPHTH/PERTUSS/ACELL/TETANUS)0.5ML SYR (90715) IM (10:32)
[2018-01-08 10:59] LABS: CPK CREATINE PHOSPHOKINASE 236 U/L (26-192); MB/CK RELATIVE INDEX 4.62 (< OR =4); TROPONIN I < 0.02 NG/ML (< 0.10)
[2018-01-08 11:08] LABS: ALBUMIN 4.1 GM/DL (3.2-5.2); ALBUMIN/GLOBULIN RATIO 1.21 (1.00-1.93); ALKALINE PHOSPHATASE 80 U/L (45-117); ALT/SGPT 77 U/L (12-78); ANION GAP 8 MEQ/L (8-16); AST/SGOT 34 U/L (7-37); BILIRUBIN,DIRECT 0.1 MG/DL (0.0-0.2); BILIRUBIN,TOTAL 0.4 MG/DL (0.2-1.0); BLOOD UREA NITROGEN 33 MG/DL (7-18); CALCIUM LEVEL 12.8 MG/DL (8.8-10.2); CARBON DIOXIDE LEVEL 25 MEQ/L (21-32); CHLORIDE LEVEL 105 MEQ/L (98-107); CREATININE FOR GFR 1.12 MG/DL (0.55-1.30); GLOMERULAR FILTRATION RATE 50.4 (>39); GLUCOSE, FASTING 155 MG/DL (70-100); POTASSIUM SERUM 3.9 MEQ/L (3.5-5.1); SODIUM LEVEL 138 MEQ/L (136-145); TOTAL PROTEIN 7.5 GM/DL (6.4-8.2)
[2018-01-08] MEDS: LIDOCAINE 1% MDV 20ML VIAL SC (11:08)
[2018-01-08 11:22] LABS: APPEARANCE, URINE CLEAR (CLEAR); BACTERIA, URINE AUTO NEGATIVE (NEGATIVE); BILIRUBIN, URINE AUTO NEGATIVE (NEGATIVE); BLOOD, URINE BLOOD NEGATIVE (NEGATIVE); COLOR, URINE STRAW (YELLOW); GLUCOSE, URINE (UA) AUTO NEGATIVE (NEGATIVE); KETONE, URINE AUTO NEGATIVE (NEGATIVE); LEUKOCYTE ESTERASE, URINE AUTO NEGATIVE (NEGATIVE); MUCUS, URINE SMALL (NEGATIVE); NITRITE, URINE AUTO NEGATIVE (NEGATIVE); PROTEIN, URINE AUTO NEGATIVE (NEGATIVE); RBC, URINE AUTO 0 /HPF (0-3); SPECIFIC GRAVITY URINE AUTO 1.005 (1.002-1.035); SQUAMOUS EPITHELIAL CELL UR AU 0 /HPF (0-6); UROBILINOGEN, URINE AUTO 0.2 mg/dL (0.0-2.0); WBC, URINE AUTO 0 /HPF (0-3)
[2018-01-08] MEDS ORDERED: METAL LOCK LOOP XX (11:42)
[2018-01-08] MEDS: NS 1,000 ML IV ×2 (14:38→15:34)
[2018-01-08] MEDS ORDERED: GLUCOSE 4 GM CHEW TABLET PO (15:30)
[2018-01-08] MEDS ORDERED: GLUCAGON FOR INJ 1 MG VIAL (J1610) SC (15:30)
[2018-01-08] MEDS ORDERED: DEXTROSE 50% 50 ML SYRINGE IV (15:30)
[2018-01-08 15:53] LABS: FREE T4 1.28 NG/DL (0.76-1.46)
[2018-01-08] MEDS: busPIRone 10 MG TAB PO ×2 (16:00→21:16)
[2018-01-08 17:48] LABS: BEDSIDE GLUCOSE 127 MG/DL (83-110)
[2018-01-08] MEDS: HumaLOG INSULIN (NovoLOG) PER UNIT SC ×2 (17:57→21:00)
[2018-01-08] MEDS: LEVOTHYROXINE 88MCG TABLET (0.088 MG) PO (19:49)
[2018-01-08 19:50] LABS: CPK CREATINE PHOSPHOKINASE 205 U/L (26-192); MB/CK RELATIVE INDEX 4.05 (< OR =4)
[2018-01-08] MEDS: MECLIZINE 25 MG TABLET PO ×2 (19:50→21:16)
[2018-01-08 20:37] LABS: BEDSIDE GLUCOSE 165 MG/DL (83-110)
[2018-01-08] MEDS: LEVEMIR (INSULIN DETEMIR) 1 UNITS/0.01ML SC (21:00)
[2018-01-08] MEDS: SIMVASTATIN 20 MG TAB PO (21:00)
[2018-01-08] MEDS: LITHIUM CARBONATE 150 MG CAP PO (21:00)
[2018-01-08] MEDS: hydrOXYzine 10 MG TAB PO (21:16)
[2018-01-08] MEDS: chlorproMAZINE 25 MG TAB (Q0161) PO (21:16)
[2018-01-08] MEDS: NYSTATIN 100,000 UNITS/GM TOPICAL PWD 15 GM TOP (21:17)
[2018-01-09 05:02] LABS: BASO % 0.4 % (0.0-1.0); EOS % 0.1 % (0.0-3.0); HEMATOCRIT 34.7 % (36.0-47.0); HEMOGLOBIN 11.3 g/dl (12.0-15.5); IMMATURE GRANULOCYTE % 0.4 % (0-3.0); LYMPH # 1.9 10^3/uL (1.5-4.5); LYMPH % 18.6 % (24.0-44.0); MEAN CORPUSCULAR HGB CONC 32.6 g/dl (32.0-36.5); MONO % 9.7 % (0.0-5.0); NEUTROPHILS # 7.4 10^3/uL (1.8-7.7); NEUTROPHILS % 70.8 % (36.0-66.0); PLATELET COUNT, AUTOMATED 226 10^3/uL (150-450); RED BLOOD COUNT 3.77 10^6/uL (4.00-5.40); RED CELL DISTRIBUTION WIDTH 14.4 % (11.5-14.5); WHITE BLOOD COUNT 10.4 10^3/uL (4.0-10.0)
[2018-01-09] MEDS: LEVOTHYROXINE 88MCG TABLET (0.088 MG) PO (05:36)
[2018-01-09 05:38] LABS: ALBUMIN 3.1 GM/DL (3.2-5.2); ALBUMIN/GLOBULIN RATIO 1.11 (1.00-1.93); ALKALINE PHOSPHATASE 67 U/L (45-117); ALT/SGPT 56 U/L (12-78); ANION GAP 7 MEQ/L (8-16); AST/SGOT 26 U/L (7-37); BILIRUBIN,TOTAL 0.3 MG/DL (0.2-1.0); BLOOD UREA NITROGEN 25 MG/DL (7-18); CALCIUM LEVEL 11.2 MG/DL (8.8-10.2); CARBON DIOXIDE LEVEL 25 MEQ/L (21-32); CHLORIDE LEVEL 111 MEQ/L (98-107); CPK CREATINE PHOSPHOKINASE 110 U/L (26-192); CREATININE FOR GFR 1.05 MG/DL (0.55-1.30); GLOMERULAR FILTRATION RATE 54.2 (>39); GLUCOSE, FASTING 107 MG/DL (70-100); LITHIUM LEVEL 0.58 MEQ/L (0.60-1.20); MB/CK RELATIVE INDEX 3.36 (< OR =4); POTASSIUM SERUM 4.1 MEQ/L (3.5-5.1); SODIUM LEVEL 143 MEQ/L (136-145); TOTAL PROTEIN 5.9 GM/DL (6.4-8.2)
[2018-01-09 08:49] LABS: BEDSIDE GLUCOSE 116 MG/DL (83-110)
[2018-01-09] MEDS: TORSEMIDE 20 MG TAB PO (08:51)
[2018-01-09] MEDS: SPIRONOLACTONE 25 MG TAB PO (08:51)
[2018-01-09] MEDS: busPIRone 10 MG TAB PO ×3 (08:51→21:35)
[2018-01-09] MEDS: SIMVASTATIN 20 MG TAB PO (08:51)
[2018-01-09] MEDS: LITHIUM CARBONATE 150 MG CAP PO ×2 (08:51→21:35)
[2018-01-09] MEDS: ASPIRIN 81 MG ENTERIC TAB PO (08:51)
[2018-01-09] MEDS: NYSTATIN 100,000 UNITS/GM TOPICAL PWD 15 GM TOP ×2 (08:51→21:36)
[2018-01-09] MEDS: MECLIZINE 25 MG TABLET PO ×3 (08:52→21:35)
[2018-01-09] MEDS: HumaLOG INSULIN (NovoLOG) PER UNIT SC ×4 (08:53→21:36)
[2018-01-09 11:29] LABS: CPK CREATINE PHOSPHOKINASE 89 U/L (26-192)
[2018-01-09 12:36] LABS: BEDSIDE GLUCOSE 217 MG/DL (83-110)
[2018-01-09 17:10] LABS: BEDSIDE GLUCOSE 135 MG/DL (83-110)
[2018-01-09 20:43] LABS: BEDSIDE GLUCOSE 242 MG/DL (83-110)
[2018-01-09] MEDS: chlorproMAZINE 25 MG TAB (Q0161) PO (21:35)
[2018-01-09] MEDS: hydrOXYzine 10 MG TAB PO (21:35)
[2018-01-09] MEDS: LEVEMIR (INSULIN DETEMIR) 1 UNITS/0.01ML SC (21:35)
[2018-01-10] MEDS: LEVOTHYROXINE 88MCG TABLET (0.088 MG) PO (06:03)
[2018-01-10 07:03] LABS: BASO # 0.1 10^3/uL (0.0-0.2); BASO % 0.4 % (0.0-1.0); EOS % 0.1 % (0.0-3.0); HEMATOCRIT 33.1 % (36.0-47.0); HEMOGLOBIN 11.1 g/dl (12.0-15.5); IMMATURE GRANULOCYTE % 0.6 % (0-3.0); LYMPH # 2.1 10^3/uL (1.5-4.5); LYMPH % 14.8 % (24.0-44.0); MEAN CORPUSCULAR HEMOGLOBIN 30.6 pg (27.0-33.0); MEAN CORPUSCULAR HGB CONC 33.5 g/dl (32.0-36.5); MEAN CORPUSCULAR VOLUME 91.2 fl (80.0-96.0); MONO % 7.1 % (0.0-5.0); PLATELET COUNT, AUTOMATED 213 10^3/uL (150-450); RED BLOOD COUNT 3.63 10^6/uL (4.00-5.40); RED CELL DISTRIBUTION WIDTH 14.4 % (11.5-14.5); WHITE BLOOD COUNT 14.3 10^3/uL (4.0-10.0)
[2018-01-10 07:28] LABS: ALBUMIN 2.7 GM/DL (3.2-5.2); ALBUMIN/GLOBULIN RATIO 0.82 (1.00-1.93); ALKALINE PHOSPHATASE 69 U/L (45-117); ALT/SGPT 51 U/L (12-78); ANION GAP 5 MEQ/L (8-16); AST/SGOT 20 U/L (7-37); BILIRUBIN,TOTAL 0.2 MG/DL (0.2-1.0); BLOOD UREA NITROGEN 25 MG/DL (7-18); CALCIUM LEVEL 10.6 MG/DL (8.8-10.2); CARBON DIOXIDE LEVEL 25 MEQ/L (21-32); CHLORIDE LEVEL 111 MEQ/L (98-107); CREATININE FOR GFR 1.12 MG/DL (0.55-1.30); GLOMERULAR FILTRATION RATE 50.4 (>39); GLUCOSE, FASTING 184 MG/DL (70-100); SODIUM LEVEL 141 MEQ/L (136-145)
[2018-01-10] MEDS: HumaLOG INSULIN (NovoLOG) PER UNIT SC ×2 (08:27→13:12)
[2018-01-10] MEDS: TORSEMIDE 20 MG TAB PO (08:28)
[2018-01-10] MEDS: ASPIRIN 81 MG ENTERIC TAB PO (08:28)
[2018-01-10] MEDS: LITHIUM CARBONATE 150 MG CAP PO ×2 (08:29→21:17)
[2018-01-10] MEDS: SPIRONOLACTONE 25 MG TAB PO (08:29)
[2018-01-10] MEDS: busPIRone 10 MG TAB PO ×3 (08:29→21:18)
[2018-01-10] MEDS: SIMVASTATIN 20 MG TAB PO (08:30)
[2018-01-10] MEDS: NYSTATIN 100,000 UNITS/GM TOPICAL PWD 15 GM TOP ×2 (08:30→21:27)
[2018-01-10] MEDS: MECLIZINE 25 MG TABLET PO ×3 (08:30→21:18)
[2018-01-10 16:31] LABS: BEDSIDE GLUCOSE 179 MG/DL (83-110)
[2018-01-10] MEDS ORDERED: metFORMIN (GLUCOPHAGE) 500 MG TAB PO (18:00)
[2018-01-10] MEDS: GLIMEPIRIDE 1 MG TABLET PO (18:33)
[2018-01-10] MEDS ORDERED: LEVEMIR (INSULIN DETEMIR) 1 UNITS/0.01ML SC (21:00)
[2018-01-10] MEDS: chlorproMAZINE 25 MG TAB (Q0161) PO (21:17)
[2018-01-10] MEDS: hydrOXYzine 10 MG TAB PO (21:18)
[2018-01-10] MEDS: ACETAMINOPHEN TAB 650MG DOSE (2X325MG) PO (21:18)
[2018-01-11] MEDS: LEVOTHYROXINE 88MCG TABLET (0.088 MG) PO (05:41)
[2018-01-11 07:21] LABS: BASO % 0.4 % (0.0-1.0); EOS % 0.1 % (0.0-3.0); HEMATOCRIT 33.4 % (36.0-47.0); IMMATURE GRANULOCYTE % 0.8 % (0-3.0); LYMPH # 2.2 10^3/uL (1.5-4.5); LYMPH % 21.8 % (24.0-44.0); MEAN CORPUSCULAR HEMOGLOBIN 30.6 pg (27.0-33.0); MEAN CORPUSCULAR HGB CONC 32.9 g/dl (32.0-36.5); MONO # 0.8 10^3/uL (0.0-0.8); MONO % 7.7 % (0.0-5.0); NEUTROPHILS % 69.2 % (36.0-66.0); PLATELET COUNT, AUTOMATED 223 10^3/uL (150-450); RED BLOOD COUNT 3.59 10^6/uL (4.00-5.40); RED CELL DISTRIBUTION WIDTH 14.3 % (11.5-14.5); WHITE BLOOD COUNT 10.2 10^3/uL (4.0-10.0)
[2018-01-11 07:43] LABS: ALBUMIN 2.7 GM/DL (3.2-5.2); ALBUMIN/GLOBULIN RATIO 0.77 (1.00-1.93); ALKALINE PHOSPHATASE 71 U/L (45-117); ALT/SGPT 50 U/L (12-78); ANION GAP 5 MEQ/L (8-16); AST/SGOT 18 U/L (7-37); BILIRUBIN,TOTAL 0.3 MG/DL (0.2-1.0); BLOOD UREA NITROGEN 25 MG/DL (7-18); CALCIUM LEVEL 10.5 MG/DL (8.8-10.2); CARBON DIOXIDE LEVEL 26 MEQ/L (21-32); CHLORIDE LEVEL 109 MEQ/L (98-107); CREATININE FOR GFR 1.13 MG/DL (0.55-1.30); GLOMERULAR FILTRATION RATE 49.8 (>39); GLUCOSE, FASTING 185 MG/DL (70-100); SODIUM LEVEL 140 MEQ/L (136-145); TOTAL PROTEIN 6.2 GM/DL (6.4-8.2)
[2018-01-11] MEDS: TORSEMIDE 20 MG TAB PO (09:21)
[2018-01-11] MEDS: SIMVASTATIN 20 MG TAB PO (09:22)
[2018-01-11] MEDS: GLIMEPIRIDE 1 MG TABLET PO ×2 (09:22→17:42)
[2018-01-11] MEDS: ACETAMINOPHEN TAB 650MG DOSE (2X325MG) PO ×2 (09:22→21:12)
[2018-01-11] MEDS: SPIRONOLACTONE 25 MG TAB PO (09:22)
[2018-01-11] MEDS: MECLIZINE 25 MG TABLET PO ×3 (09:22→21:11)
[2018-01-11] MEDS: busPIRone 10 MG TAB PO ×3 (09:22→21:11)
[2018-01-11] MEDS: LITHIUM CARBONATE 150 MG CAP PO ×2 (09:22→21:10)
[2018-01-11] MEDS: NYSTATIN 100,000 UNITS/GM TOPICAL PWD 15 GM TOP ×2 (09:23→21:12)
[2018-01-11] MEDS: ASPIRIN 81 MG ENTERIC TAB PO (09:23)
[2018-01-11 16:42] LABS: BEDSIDE GLUCOSE 124 MG/DL (83-110)
[2018-01-11 16:44] LABS: BEDSIDE GLUCOSE 223 MG/DL (83-110)
[2018-01-11 16:44] LABS: BEDSIDE GLUCOSE 137 MG/DL (83-110)
[2018-01-11 16:44] LABS: BEDSIDE GLUCOSE 274 MG/DL (83-110)
[2018-01-11 19:31] LABS: BEDSIDE GLUCOSE 145 MG/DL (83-110)
[2018-01-11] MEDS: chlorproMAZINE 25 MG TAB (Q0161) PO (21:11)
[2018-01-11] MEDS: hydrOXYzine 10 MG TAB PO (21:11)
[2018-01-12] MEDS: LEVOTHYROXINE 88MCG TABLET (0.088 MG) PO (05:20)
[2018-01-12 06:47] LABS: BASO # 0.1 10^3/uL (0.0-0.2); BASO % 0.6 % (0.0-1.0); EOS % 0.1 % (0.0-3.0); HEMATOCRIT 33.6 % (36.0-47.0); HEMOGLOBIN 11.1 g/dl (12.0-15.5); IMMATURE GRANULOCYTE % 0.9 % (0-3.0); LYMPH # 2.3 10^3/uL (1.5-4.5); LYMPH % 25.9 % (24.0-44.0); MEAN CORPUSCULAR VOLUME 90.8 fl (80.0-96.0); MONO # 0.7 10^3/uL (0.0-0.8); MONO % 8.1 % (0.0-5.0); NEUTROPHILS # 5.8 10^3/uL (1.8-7.7); NEUTROPHILS % 64.4 % (36.0-66.0); PLATELET COUNT, AUTOMATED 234 10^3/uL (150-450)
[2018-01-12 07:24] LABS: ALBUMIN 2.7 GM/DL (3.2-5.2); ALBUMIN/GLOBULIN RATIO 0.79 (1.00-1.93); ALKALINE PHOSPHATASE 70 U/L (45-117); ALT/SGPT 53 U/L (12-78); ANION GAP 6 MEQ/L (8-16); AST/SGOT 22 U/L (7-37); BILIRUBIN,TOTAL 0.4 MG/DL (0.2-1.0); BLOOD UREA NITROGEN 27 MG/DL (7-18); CALCIUM LEVEL 10.5 MG/DL (8.8-10.2); CARBON DIOXIDE LEVEL 24 MEQ/L (21-32); CHLORIDE LEVEL 111 MEQ/L (98-107); CREATININE FOR GFR 1.16 MG/DL (0.55-1.30); GLOMERULAR FILTRATION RATE 48.4 (>39); GLUCOSE, FASTING 158 MG/DL (70-100); SODIUM LEVEL 141 MEQ/L (136-145); TOTAL PROTEIN 6.1 GM/DL (6.4-8.2)
[2018-01-12] MEDS: ACETAMINOPHEN TAB 650MG DOSE (2X325MG) PO ×2 (07:46→13:09)
[2018-01-12] MEDS: GLIMEPIRIDE 1 MG TABLET PO (07:47)
[2018-01-12] MEDS: SIMVASTATIN 20 MG TAB PO (07:47)
[2018-01-12] MEDS: ASPIRIN 81 MG ENTERIC TAB PO (07:47)
[2018-01-12] MEDS: LITHIUM CARBONATE 150 MG CAP PO (07:47)
[2018-01-12] MEDS: busPIRone 10 MG TAB PO (07:47)
[2018-01-12] MEDS: SPIRONOLACTONE 25 MG TAB PO (07:47)
[2018-01-12] MEDS: MECLIZINE 25 MG TABLET PO (07:48)
[2018-01-12] MEDS: TORSEMIDE 20 MG TAB PO (07:48)
[2018-01-12] MEDS: NYSTATIN 100,000 UNITS/GM TOPICAL PWD 15 GM TOP (07:48)
[2018-01-12 12:06] LABS: BEDSIDE GLUCOSE 178 MG/DL (83-110)
== END 2018-01-12 14:10 | disposition home or self-care (01) | DRG 923 ==
LOC: M MS5PR 01-09 22:53 → M ED 08:56 → M ED INP 15:38 → M ICU 18:48
DX: T68.XXXA Hypothermia, initial encounter (principal); I50.32 Chronic diastolic (congestive) heart failure; I11.0 Hypertensive heart disease with heart failure; E78.5 Hyperlipidemia, unspecified; F31.9 Bipolar disorder, unspecified; E11.9 Type 2 diabetes mellitus without complications; E03.9 Hypothyroidism, unspecified; D72.823 Leukemoid reaction; Z95.0 Presence of cardiac pacemaker; S01.01XA Laceration without foreign body of scalp, initial encounter; W18.30XA Fall on same level, unspecified, initial encounter; Y92.009 Unspecified place in unspecified non-institutional (private) residence as the place of occurrence of the external cause; Z79.4 Long term (current) use of insulin; Z79.82 Long term (current) use of aspirin; Z79.899 Other long term (current) drug therapy; Z88.2 Allergy status to sulfonamides; Z88.0 Allergy status to penicillin; Z88.8 Allergy status to other drugs, medicaments and biological substances; Z91.013 Allergy to seafood; Z88.1 Allergy status to other antibiotic agents; I44.0 Atrioventricular block, first degree; E66.9 Obesity, unspecified; Z68.38 Body mass index [BMI] 38.0-38.9, adult